=== PATIENT | female | born 1960 | race Caucasian/White ===

== ENCOUNTER 2019-08-24 19:31 | Emergency (ER) | payer MEDICAID, SELFPAY ==
[2019-08-24 19:38] VITALS: BP 126/69; PULSE 87; RESP 18; TEMP 36.4; O2SAT 97
--- NOTE | 2019-08-24 19:49 | W.ED.GENAD ---
Discharge Plan Disposition Patient Disposition: HOME Condition: Stable Discharge Details Chief Complaint: Cellulitis Clinical Impression: Abscess Primary Care Provider: Sidney Montes ED Provider: Kaila Abreu Home Meds and New Rx's Prescriptions: New clindamycin HCl 300 mg capsule 300 mg PO BID 7 Days Qty: 14 RF: 0 No Action loratadine [Claritin] 10 MG tablet 10 mg PO DAILY PRNRF: 0 levothyroxine 300 MCG tablet 300 mg PO DAILY Qty: 5 RF: 0 sertraline 100 MG tablet 100 mg PO DAILY Qty: 5 RF: 0 Discharge Instructions Instructions: Abscess (ED) Additional Instructions: Have packing removed in 3 days. It will continue to drain as long as packing is in place. Return to ED if any worsening redness, red streaks, fever or any concerns or worsening at any time. Take antibiotics as prescribed. Follow up with primary care provider in 3-5 days. Return to ED sooner if any worsening or concerns. Increase oral fluids. Please take Tylenol or Ibuprofen with food every 4-6 hours as needed for pain and swelling. Referrals: Sidney Montes [Primary Care Provider] - Medical Decision Making 59 year old F presents to the emergency department with the chief complaint of Right thigh cellulitis versus abscess., described as moderate, with intensity rated at 8. Quality is described as aching and constant, and is localized to the right and lower extremity (Inner thigh). Patient reports no radiation. Patient started experiencing this day(s) (2) and it has been constant. other things that improve symptom(s), (Warm baths) Movement worsens symptoms . Patient notes fever/chills (Chills), malaise and other (Myalgias). Patient did receive the following treatments prior to arrival, heat therapy 2002: [id number] ultrasound done at the bedside, there is fluid-filled pocket, discussed incision and drainage with patient she verbalizes understanding and agrees to procedure. I&D performed patient anesthetized with 1% lidocaine. Patient tolerated well, incision made moderate amount of purulent serosanguineous drainage, approximately 3 inches of quarter inch iodoform packing placed. WBC count is 13, blood cultures x2 were drawn, sodium is 134 patient was given 1 L normal saline in department and 300 mg clindamycin IV piggyback. Will place on patient on clindamycin p.o. x10 days, given home care instructions and strict return instructions. Instructed to have packing removed in 3 days. Verbalized understanding. HPI General Mode of arrival: ambulatory. Date/Time Provider Initiated Documentation: 08/24/19 19:32. Limitations to Documentation: no limitations. Information obtained by: patient. History of Present Illness 59 year old F presents to the emergency department with the chief complaint of Right thigh cellulitis versus abscess., described as moderate, with intensity rated at 8. Quality is described as aching and constant, and is localized to the right and lower extremity (Inner thigh). Patient reports no radiation. Patient started experiencing this day(s) (2) and it has been constant. other things that improve symptom(s), (Warm baths) Movement worsens symptoms . Patient notes fever/chills (Chills), malaise and other (Myalgias). Patient did receive the following treatments prior to arrival, heat therapy Related Data Home Medications Medication Instructions Recorded Confirmed loratadine [Claritin] 10 mg PO DAILY PRN 03/06/14 08/24/19 levothyroxine 300 mg PO DAILY #5 tablet 03/07/14 08/24/19 sertraline 100 mg PO DAILY #5 tab 03/07/14 08/24/19 clindamycin HCl 300 mg PO BID 7 Days #14 cap 08/24/19 Previous Rx's Medication Instructions Recorded levothyroxine 300 mg PO DAILY #5 tablet 03/07/14 sertraline 100 mg PO DAILY #5 tab 03/07/14 clindamycin HCl 300 mg PO BID 7 Days #14 cap 08/24/19 Allergies Allergy/AdvReac Type Severity Reaction Status Date / Time shellfish derived Allergy Severe anaphylaxis Unverified 08/24/19 19:42 acetaminophen [From Vicodin] Allergy Intermediate body rash/ Unverified 08/24/19 19:42 ciprofloxacin [From Cipro] Allergy Intermediate body Unverified 08/24/19 19:42 rash/nausea ciprofloxacin HCl Allergy Intermediate body Unverified 08/24/19 19:42 [From Cipro] rash/nausea codeine Allergy Intermediate body Unverified 08/24/19 19:42 rash/nausea hydrocodone bitartrate Allergy Intermediate body rash/ Unverified 08/24/19 19:42 [From Vicodin] Penicillins Allergy Intermediate body Unverified 08/24/19 19:42 rash/nausea General Stated Complaint: Cellulitis JAYMIE: 3 Review of Systems Narrative: Constitutional: Negative for weight loss, alert and oriented, well groomed, normal body habitus, appears comfortable. Reports myalgias and chills HEENT: Denies trauma, headaches, blurry vision, nasal discharge, sore throat, trouble swallowing. Chest: Denies chest pain, palpitations, irregular rhythm, hypertension. Respiratory: Denies Shortness of breath, cough, hemoptysis. GI: Denies abdominal pain, nausea, vomiting, diarrhea, constipation. : Denies dysuria, hematuria, flank pain, rectal bleeding. Skin: Has a 10 cm x 10 cm area of erythema and induration noted to her inner thigh. Neuro: Denies dizziness, blurry vision, weakness, syncope, headache or facial numbness. Hematologic: Denies easy bruising, intolerance to heat or cold, hair loss. [facility] Medical History Dilated pore of Amor (Acute) Graves disease (Acute) Surgical History History of appendectomy (Chronic) History of hysterectomy (Chronic) History of knee surgery (Acute) Social History Smoking/Tobacco Use Status: Current-Occasional Alcohol Intake: never Drug use: Never Substance use type: does not use Do you feel safe at home: Yes Do you feel safe in your relationship?: Yes Exam Narrative Exam Narrative: Constitutional: Alert and oriented x3. Appears stated age. Normal body habitus. Head: Normocephalic, no trauma. Eyes: Pupils PERRLA, Red reflex noted, EOM's intact. Eyelids symmetrical without lesions, discharge, or swelling. ENT: Bilateral TM's WNL, External ear normal to inspection, no mastoid TTP, swelling, or erythema, Nasal turbinates WNL, no nasal discharge. Normal dentition, Posterior pharynx WNL, no exudate. Chest: RRR, Normal S1, S2, distal pulses intact. Resp: Lungs clear to auscultation bilaterally, no wheezes, rales, or rhonchi. Musculoskeletal: Normal gait, 5/5 strength to all four extremities. Skin: Capillary refill less than 2 sec. has a 10 cm x 10 cm area of erythema and induration noted to her right inner thigh, warm and tender to touch. Neurologic: Cranial nerves II-XII intact. Alert and oriented x 3. DTR's intact. Hematologic/Lymphatic: No ecchymosis, no lymphadenopathy. Course Vital Signs Vital signs: Vital Signs Temperature 36.4 C L 08/24/19 19:38 Pulse 87 08/24/19 19:38 Respiratory Rate 18 08/24/19 19:38 Blood Pressure 126/69 08/24/19 19:38 Pulse Oximetry 97 08/24/19 19:38 Temperature 36.4 C L 08/24/19 19:38 Temperature Source Skin 08/24/19 19:38 Pulse 87 08/24/19 19:38 Respiratory Rate 18 08/24/19 19:38 Respiratory Effort Non-Labored 08/24/19 19:44 Blood Pressure 126/69 08/24/19 19:38 Pulse Oximetry 97 08/24/19 19:38 Pain Level 08/24/19 19:38 Procedures Abscess I/D Site: Lower Extremity (Right inner thigh) Side (if applicable): Right Sedation/analgesia: None Local Anesthetic: Lidocaine 1% Amount of anesthesia used (mL): 3 Technique: Incised with #11 Blade Amount of fluid expressed (mL): 100 (Serosanguineous with mixed purulent) Irrigation: No Packing used?: Iodoform (Quarter-inch approximately 3 inches) Complications: Bleeding
[2019-08-24 20:14] LABS: Abs Immature Grans 0.03 k/cumm (0.0-0.09); Absolute Basophil Count 0.03 k/cumm (0.0-0.2); Absolute Eosinophil Count 0.17 k/cumm (0.0-0.7); Basophils % 0.2; Eosinophils % 1.2; HCT 38.5 % (36.0-46.0); HGB 12.3 g/dL (12.0-15.5); Immature Grans % 0.2 %; Lymphocytes % 27.3; Mean Corp. HGB Concentration 31.9 g/dL (32.0-36.0); Mean Corpuscular Volume 87.5 fL (80-95); Mean Platelet Volume 10.2 fL (8.0-11.0); Monocytes % 7.6; Neutrophils % 63.5; Platelet Count 321 x1000/uL (130-400); RBC Distribution Width 16.2 % (11.7-14.6); White Blood Cell Count 13.86 k/cumm (4.4-10.8)
[2019-08-24 20:22] LABS: Absolute Lymphocyte Count 3.78 k/cumm (1.2-3.4); Absolute Monocyte Count 1.05 k/cumm (0.11-0.7)
[2019-08-24 20:32] LABS: ALT 43 U/L (14-59); AST 21 U/L (15-37); Albumin 3.6 g/dL (3.4-5.0); Alkaline Phosphatase 102 U/L (46-116); Anion Gap 8.3 mmol/L (3-11); BUN 17 mg/dL (7-18); Bilirubin, Total 0.3 mg/dL (0.2-1.0); CO2 26.7 mmol/L (21.0-32.0); CREATININE 0.99 mg/dL (0.55-1.02); Calcium 9.1 mg/dL (8.5-10.1); Chloride 99 mmol/L (98-107); Estimated GFR 57.61 (mL/min/1.73m2); Glucose 136 mg/dL (74-106); Potassium 3.9 mmol/L (3.5-5.1); Sodium 134 mmol/L (136-145); Total Protein 8.1 g/dL (6.4-8.2)
[2019-08-24] MEDS: Lidocaine 1% Multi-Dose 50 ML VIAL IJ (20:42)
[2019-08-24] MEDS: CLINDAMYCIN 300 MG/50 ML BAG 100 MG IVPB (21:25)
[2019-08-24] MEDS: Normal Saline 1,000 ML 1000 ML IV (21:25)
[2019-08-24] MEDS: Ibuprofen 600 MG TAB PO (21:56)
[2019-08-24 22:20] VITALS: PULSE 76; RESP 16; O2SAT 96
== END 2019-08-24 22:25 | disposition home or self-care (01) ==
PROVIDERS: Emergency Provider Registered Nurse Emergency; PCP Internal Medicine
DX: L02.415 Cutaneous abscess of right lower limb (principal); L73.8 Other specified follicular disorders
CPT/HCPCS: 10061; 36415; 80053; 87040; 87077; 96361; 96365; 99284; 85025; 87070; 87186; 87205; 99283

== ENCOUNTER 2020-03-08 04:22 | Outpatient (CLI) | payer MEDICAID, SELFPAY ==
[2020-03-08 08:29] LABS: Hemoglobin A1C 6.3 % (<5.7)
[2020-03-08 08:54] LABS: FREE T4 1.22 ng/dL (0.76-1.46); TSH 1.86 uIU/mL (0.36-3.74)
[2020-03-08 09:03] LABS: ALT 58 U/L (14-59); AST 42 U/L (15-37); Albumin 3.7 g/dL (3.4-5.0); Alkaline Phosphatase 100 U/L (46-116); Anion Gap 8.1 mmol/L (3-11); BUN 15 mg/dL (7-18); Bilirubin, Total 0.3 mg/dL (0.2-1.0); CO2 26.9 mmol/L (21.0-32.0); CREATININE 0.75 mg/dL (0.55-1.02); Calcium 9.4 mg/dL (8.5-10.1); Chloride 105 mmol/L (98-107); Glucose 104 mg/dL (74-106); Potassium 4.4 mmol/L (3.5-5.1); Sodium 140 mmol/L (136-145); Total Protein 7.8 g/dL (6.4-8.2)
[2020-03-08 09:06] LABS: Vitamin D 25 Total 15.5 ng/ml (30-100)
== END 2020-03-08 04:42 ==
PROVIDERS: Internal Medicine Endocrinology, Diabetes & Metabolism; PCP Internal Medicine; Visit Provider Internal Medicine
DX: E89.0 Postprocedural hypothyroidism (principal); E66.01 Morbid (severe) obesity due to excess calories; Z68.42 Body mass index [BMI] 45.0-49.9, adult
CPT/HCPCS: 36415; 80053; 82306; 83525; 83527; 83036; 84439; 84443

== ENCOUNTER 2020-05-25 11:02 | Outpatient (REF) | payer MEDICAID, SELFPAY ==
[2020-05-27 14:15] LABS: Helicobacter pylori Ag, Feces Positive (Negative)
== END 2020-05-25 11:03 | disposition home or self-care (01) ==
LOC: LBN 11:02
PROVIDERS: PCP Internal Medicine; Visit Provider Internal Medicine
DX: E66.01 Morbid (severe) obesity due to excess calories (principal); Z68.42 Body mass index [BMI] 45.0-49.9, adult
CPT/HCPCS: 87338

== ENCOUNTER 2020-07-13 18:02 | Emergency (ER) | payer MEDICAID, SELFPAY ==
[2020-07-13 18:10] VITALS: BP 135/68; PULSE 76; RESP 18; TEMP 35.9; O2SAT 100
--- NOTE | 2020-07-13 18:15 | DI.RAD_ITS ---
EXAM: XR KNEE LT 3V AP,LAT,ANGIE CLINICAL HISTORY: pain. TECHNIQUE: 2D digital imaging was performed. COMPARISON: No exams were available for comparison FINDINGS: There is no evidence of acute fracture but there does appear to be a joint effusion. In addition, th ere are significant degenerative changes in the medial compartment with joint space narrowing and mar ginal osteophytes. Also bony excrescence pointing into the joint space off the anterior aspect of th e tibial plateau. Also small intra-articular loose body, in the inter condylar notch region, this me asuring 2 millimeters. No osseous lesions. IMPRESSION: Degenerative changes. Joint effusion. Intra-articular loose body. DATA REPOSITORY: RADIATION DOSE DELIVERED:
--- NOTE | 2020-07-13 18:17 | W.ED.GENAD ---
Discharge Plan Disposition Patient Disposition: HOME Condition: Stable Discharge Details Clinical Impression: Knee pain, left Primary Care Provider: Sidney Montes ED Provider: Jm Curtis Home Meds and New Rx's Prescriptions: New gabapentin 100 mg capsule 100 mg PO TID PRNQty: 30 RF: 0 Continued loratadine [Claritin] 10 MG tablet 10 mg PO DAILY PRNRF: 0 sertraline 100 MG tablet 100 mg PO DAILY Qty: 5 RF: 0 No Action levothyroxine 300 MCG tablet 225 mcg PO DAILY RF: 0 Discharge Instructions Instructions: Knee Pain (ED) Additional Instructions: you can take 1000mg tylenol and 600mg ibuprofen every 6 hours for pain as needed follow up with your primary care provider within 1-2 weeks if you feel more ill, have fevers or spreading redness of the knee return to the emergency department Medical Decision Making 60 yo female comes in with left knee pain. She states she left for [place] 4 weeks ago and came back this past Sunday. She states while there she did walk and ride bikes quite a bit, denies any falls or trauma, no redness or fevers. On exam has mild swelling of the left knee without erythema or warmth. Can full move it with intact distal sensation, does have pain over the medial joint line. Suspect sprain vs overuse vs possible meniscus injury, doubt fracture but will xray to evaluate for arthritis. No findings to suggest septic joint Shortly after discussing plan with patient she questioned purpose of the xray and just wanted something forpain. I advised xray will likely be normal but the reasons I wanted to perform it. She states she has been taking ibuprofen and what else she could take for pain. When I asked if she has taken tylenol she stared at me for a few seconds then said Tylenol? Tylenol ain't going to do anything. I did advise there are other medicines that could potentially help such as gabapentin or lidocaine but did not feel meds such as opiates are indicated for this and did not feel comfortable prescribing opiates. The patient then began to get very upset stating I haven't taken any F'ing opiates my whole damn life! She was very angry and I tried multiple times to try and discuss calmly with the patient reasons opiates are restricted but she did not agree with this. She is requesting d/c with no xray but does want the gabapentin. I advised she needs to follow up with her pcp within 1-2 weeks and advised she can always return if she changes her mind patient is now agreeable to having xray at this time. pt did not want to wait for xray result and again has capacity to make her own decisions. She was advised again she can return at any time especially if symptoms worsen and advised to f/u with pcp xray showed arthiritis with small effusion and no findings to warrant emergent therapy at this time. Differential Diagnosis Differential Diagnosis: arthritis, sprain, strain, meniscus injury Imaging Data Radiologic Study: Attestation: I personally reviewed and interpreted this imaging study as follows: Imaging: X-Ray Radiologist's impression: IMPRESSION: Tricompartmental osteoarthritis with moderate medial compartment joint space narrowing, small joint effusion, and possible tiny intra-articular body. HPI General Date/Time Provider Initiated Documentation: 07/13/20 18:17. Limitations to Documentation: no limitations. Information obtained by: patient. History of Present Illness 60 year old F presents to the emergency department with the chief complaint of left knee pain, Quality is described as aching, and is localized to the lower extremity. Patient reports no radiation. Patient started experiencing this week(s) (2) and it has been constant. Rest improves symptom(s), Movement worsens symptoms . Patient did receive the following treatments prior to arrival, NSAID Related Data Home Medications Medication Instructions Recorded Confirmed loratadine [Claritin] 10 mg PO DAILY PRN 03/06/14 07/13/20 sertraline 100 mg PO DAILY #5 tab 03/07/14 07/13/20 gabapentin 100 mg PO TID PRN #30 cap 07/13/20 levothyroxine 225 mcg PO DAILY 07/13/20 07/13/20 Previous Rx's Medication Instructions Recorded sertraline 100 mg PO DAILY #5 tab 03/07/14 gabapentin 100 mg PO TID PRN #30 cap 07/13/20 Allergies Allergy/AdvReac Type Severity Reaction Status Date / Time shellfish derived Allergy Severe anaphylaxis Unverified 07/13/20 18:18 acetaminophen [From Vicodin] Allergy Intermediate body rash/ Unverified 07/13/20 18:18 ciprofloxacin [From Cipro] Allergy Intermediate body Unverified 07/13/20 18:18 rash/nausea ciprofloxacin HCl Allergy Intermediate body Unverified 07/13/20 18:18 [From Cipro] rash/nausea codeine Allergy Intermediate body Unverified 07/13/20 18:18 rash/nausea hydrocodone bitartrate Allergy Intermediate body rash/ Unverified 07/13/20 18:18 [From Vicodin] Penicillins Allergy Intermediate body Unverified 07/13/20 18:18 rash/nausea General JAYMIE: 3 Review of Systems All systems reviewed & are unremarkable except as noted in HPI and below Constitutional Constitutional: Denies chills and Denies fever(s) Cardiovascular Cardiovascular: Denies chest pain and Denies dyspnea Respiratory Respiratory: Denies cough and Denies dyspnea Gastrointestinal Gastrointestinal: Denies abdominal pain, Denies nausea and Denies vomiting [facility] Medical History (Updated 07/13/20 @ 18:18 by Jm Curtis MD) Dilated pore of Amor Graves disease Surgical History History of appendectomy History of hysterectomy History of knee surgery Social History Smoking/Tobacco Use Status: Former Tobacco Use Smoking risk assessment performed?: Yes Alcohol Intake: never Drug use: Never Substance use type: does not use Do you feel safe at home: Yes Do you feel safe in your relationship?: Yes Exam Const General: no acute distress Orientation: alert HENMT Head: normal to inspection Ears: external ears normal General nose exam: external nose normal Mouth: moist mucous membranes Eyes General: appearance normal, both eyes and all related structures Neck Neck: normal visual inspection Resp Effort & Inspection: normal respiratory effort and able to speak in complete sentences Cardio Rate: regular rate Skin General skin exam: no rashes or lesions noted Neuro General: patient alert and patient oriented x3 Extrem General: capillary refill normal Psych Mental Status: mental status grossly normal
--- NOTE | 2020-07-13 19:10 | NUR.NOTE ---
Nursing Note:Patient asking if she can leave. Discussed with Dr. Curtis. Patient can be discharged, still waiting for Radiology report. Will call patient if needed when report comes back. Discussed this with patient. Patient okay with this POC, states she just wants to get to the pharmacy to get her medication to see if it's going to help.
--- NOTE | 2020-07-13 19:33 | DI.VRAD_ITS ---
PROCEDURE INFORMATION: Exam: XR Left Knee Exam date and time: 07/13/2020 6:27 PM Age: 60 years old Clinical indication: Other: Pain; Additional info: Non trauma left knee pain TECHNIQUE: Imaging protocol: XR Left knee. Views: 3 views. COMPARISON: No relevant prior studies available. FINDINGS: Bones/joints: Moderate medial compartment joint space narrowing. Small joint effusion. Tricompartmental degenerative spurring. Tiny calcification, noted in the intercondylar notch, may be an intra-articular body. Small inferior pole patellar enthesophyte. Soft tissues: Normal. IMPRESSION: Tricompartmental osteoarthritis with moderate medial compartment joint space narrowing, small joint effusion, and possible tiny intra-articular body. Dictated and Authenticated by: Navin Wolfe MD. Ordering:KAITLYNN Oneal MD
--- NOTE | 2020-07-13 19:40 | NUR.NOTE ---
Nursing Note:Reviewed Radiology report with Dr. Curtis. Per Dr. Curtis not necessary to call patient with report. Patient to follow up with PCP.
== END 2020-07-13 19:15 | disposition home or self-care (01) ==
LOC: ER 18:26
PROVIDERS: Emergency Provider Emergency Medicine; PCP Internal Medicine
DX: M17.12 Unilateral primary osteoarthritis, left knee (principal); M25.462 Effusion, left knee
CPT/HCPCS: 73562; 99283

== ENCOUNTER 2021-01-06 02:03 | Outpatient (CLI) | payer MEDICAID, SELFPAY ==
[2021-01-06 13:13] LABS: Abs Immature Grans 0.01 10^3/uL (0.0-0.06); Absolute Basophil Count 0.04 10^3/uL (0.0-0.2); Absolute Eosinophil Count 0.16 10^3/uL (0.0-0.7); Absolute Lymphocyte Count 3.73 10^3/uL (1.2-3.4); Absolute Monocyte Count 0.47 10^3/uL (0.1-0.8); Absolute Neutrophil Count 3.65 10^3/uL (1.2-6.7); Basophils % 0.5; HCT 40.7 % (36.0-46.0); HGB 13.3 g/dL (11.2-15.7); Immature Grans % 0.1; Lymphocytes % 46.3; MCH 30.3 pg (27.0-33.0); MCHC 32.7 % (32.0-36.0); MCV 92.7 fL (80-95); MPV 9.8 fL (8.0-11.0); Monocytes % 5.8; Neutrophils % 45.3; Nucleated RBC 0 %; Platelet Count 284 10^3/uL (130-400); RBC 4.39 10^6/uL (3.93-5.22); RDW 14.2 % (11.7-14.6); RDW-SD 48.3 fL; WBC 8.06 10^3/uL (4.4-10.8)
[2021-01-06 14:24] LABS: Iron 54 ug/dL (50-170); Total Iron Binding Capacity 298 ug/dL (250-450); Transferrin Sat 18 % (15-50)
[2021-01-06 14:44] LABS: ALT 22 U/L (14-59); AST 15 U/L (15-37); Albumin 3.8 g/dL (3.4-5.0); Alkaline Phosphatase 71 U/L (46-116); Anion Gap 10.6 mmol/L (3-11); BUN 10 mg/dL (7-18); Bilirubin, Total 0.4 mg/dL (0.2-1.0); CO2 26.4 mmol/L (21.0-32.0); CREATININE 0.8 mg/dL (0.55-1.02); Calcium 9.3 mg/dL (8.5-10.1); Chloride 105 mmol/L (98-107); Ferritin 15 ng/mL (8-252); Folate 13.2 ng/mL (8.6-20.0); Glucose 97 mg/dL (74-106); Potassium 3.8 mmol/L (3.5-5.1); Sodium 142 mmol/L (136-145); Total Protein 7.4 g/dL (6.4-8.2); Vitamin B12 247 pg/mL (193-986)
[2021-01-06 14:45] LABS: Vitamin D 25 Total 31.7 ng/mL (30-100)
[2021-01-07 09:59] LABS: Parathyroid Hormone,Intact 71 pg/mL (19-88)
[2021-01-08 09:57] LABS: Thiamine (Vitamin B1), WB 102 nmol/L (70-180)
== END 2021-01-06 02:04 | disposition home or self-care (01) ==
LOC: LBO 02:03
PROVIDERS: PCP Internal Medicine; Visit Provider Internal Medicine
DX: Z98.84 Bariatric surgery status (principal); Z68.41 Body mass index [BMI] 40.0-44.9, adult; Z00.00 Encounter for general adult medical examination without abnormal findings
CPT/HCPCS: 36415; 80053; 82306; 82607; 82728; 82746; 83540; 83550; 83970; 84425; 85025

== ENCOUNTER 2021-07-06 02:39 | Outpatient (CLI) | payer MEDICAID, SELFPAY ==
[2021-07-06 12:38] LABS: Abs Immature Grans 0.03 10^3/uL (0.0-0.06); Absolute Basophil Count 0.03 10^3/uL (0.0-0.2); Absolute Eosinophil Count 0.17 10^3/uL (0.0-0.7); Absolute Lymphocyte Count 3.51 10^3/uL (1.2-3.4); Absolute Monocyte Count 0.51 10^3/uL (0.1-0.8); Basophils % 0.3; Eosinophils % 1.9; HCT 40.8 % (36.0-46.0); HGB 13.2 g/dL (11.2-15.7); Immature Grans % 0.3; Lymphocytes % 40.1; MCH 30.6 pg (27.0-33.0); MCHC 32.4 % (32.0-36.0); MCV 94.4 fL (80-95); Monocytes % 5.8; Neutrophils % 51.6; Nucleated RBC 0 %; Platelet Count 307 10^3/uL (130-400); RBC 4.32 10^6/uL (3.93-5.22); RDW-SD 45.1 fL; WBC 8.75 10^3/uL (4.4-10.8)
[2021-07-06 13:23] LABS: ALT 16 U/L (14-59); AST 13 U/L (15-37); Alkaline Phosphatase 89 U/L (46-116); Anion Gap 9.7 mmol/L (3-11); BUN 17 mg/dL (7-18); Bilirubin, Total 0.4 mg/dL (0.2-1.0); CO2 27.3 mmol/L (21.0-32.0); CREATININE 0.7 mg/dL (0.55-1.02); Calcium 9.6 mg/dL (8.5-10.1); Chloride 105 mmol/L (98-107); Glucose 85 mg/dL (74-106); Potassium 4.1 mmol/L (3.5-5.1); Sodium 142 mmol/L (136-145); Total Protein 7.5 g/dL (6.4-8.2)
== END 2021-07-06 02:40 | disposition home or self-care (01) ==
LOC: LBO 02:39
PROVIDERS: PCP Internal Medicine; Visit Provider Internal Medicine Rheumatology
DX: Z00.00 Encounter for general adult medical examination without abnormal findings (principal)
CPT/HCPCS: 36415; 80053; 85025

== ENCOUNTER 2022-03-01 02:51 | Outpatient (CLI) | payer MEDICAID, SELFPAY ==
[2022-03-01 12:23] LABS: HCT 40.5 % (36.0-46.0); HGB 13.4 g/dL (11.2-15.7); MCH 30.7 pg (27.0-33.0); MCHC 33.1 % (32.0-36.0); MCV 93 fL (80-95); MPV 9.3 fL (8.0-11.0); Platelet Count 361 10^3/uL (130-400); RBC 4.37 10^6/uL (3.93-5.22); RDW-SD 48.1 fL; WBC 9.81 10^3/uL (4.4-10.8)
[2022-03-01 13:15] LABS: ALT 19 U/L (14-59); AST 13 U/L (15-37); Albumin 3.9 g/dL (3.4-5.0); Alkaline Phosphatase 73 U/L (46-116); Anion Gap 7.3 mmol/L (3-11); BUN 14 mg/dL (7-18); Bilirubin, Total 0.3 mg/dL (0.2-1.0); CO2 27.7 mmol/L (21.0-32.0); CREATININE 0.8 mg/dL (0.55-1.02); Calcium 9.1 mg/dL (8.5-10.1); Chloride 104 mmol/L (98-107); Ferritin 24 ng/mL (8-252); Folate 12.8 ng/mL (8.6-20.0); Glucose 91 mg/dL (74-106); Potassium 3.6 mmol/L (3.5-5.1); Sodium 139 mmol/L (136-145); Total Protein 7.9 g/dL (6.4-8.2); Vitamin B12 146 pg/mL (193-986)
[2022-03-01 13:23] LABS: Iron 71 ug/dL (50-170)
[2022-03-01 23:47] LABS: Parathyroid Hormone,Intact 51 pg/mL (19-88)
[2022-03-02 04:56] LABS: Vitamin D 25 Total 23.5 ng/mL (30-100)
[2022-03-04 09:58] LABS: Thiamine (Vitamin B1), WB 124 nmol/L (70-180)
== END 2022-03-01 02:52 | disposition home or self-care (01) ==
LOC: LBO 02:51
PROVIDERS: PCP Internal Medicine; Visit Provider Nurse Practitioner Family
DX: E83.10 Disorder of iron metabolism, unspecified (principal); Z98.84 Bariatric surgery status; E55.9 Vitamin D deficiency, unspecified; E53.8 Deficiency of other specified B group vitamins
CPT/HCPCS: 36415; 80053; 82306; 85027; 82607; 82728; 82746; 83540; 83970; 84425

== ENCOUNTER 2023-08-06 13:07 | Outpatient (CLI) | payer MEDICAID, SELFPAY ==
[2023-08-06 13:16] LABS: HCT 38.9 % (36.0-46.0); HGB 12.8 g/dL (11.2-15.7); MCH 31.4 pg (27.0-33.0); MCHC 32.9 % (32.0-36.0); MCV 96 fL (80-95); Platelet Count 297 10^3/uL (130-400); RBC 4.07 10^6/uL (3.93-5.22); RDW-SD 63.3 fL; WBC 8.04 10^3/uL (4.4-10.8)
[2023-08-06 14:00] LABS: Iron 84 ug/dL (50-170); Total Iron Binding Capacity 317 ug/dL (250-450); Transferrin Sat 26 % (15-50)
[2023-08-06 14:13] LABS: Ferritin 95 ng/mL (8-252); Folate 12.2 ng/mL (8.6-20.0); Vitamin B12 275 pg/mL (193-986)
== END 2023-08-06 13:08 | disposition home or self-care (01) ==
LOC: LBO 13:07
PROVIDERS: PCP Internal Medicine; Visit Provider Nurse Practitioner Family
DX: D50.9 Iron deficiency anemia, unspecified (principal)
CPT/HCPCS: 36415; 85027; 82607; 82728; 82746; 83540; 83550

== ENCOUNTER 2023-08-23 01:19 | Outpatient (CLI) | payer MEDICAID, SELFPAY ==
[2023-08-23 14:33] LABS: Vitamin D 25 Total 18.1 ng/mL (30-100)
[2023-08-24 08:48] LABS: Parathyroid Hormone,Intact 55 pg/mL (19-88)
== END 2023-08-23 01:20 | disposition home or self-care (01) ==
LOC: LBO 01:19
PROVIDERS: PCP Internal Medicine; Visit Provider Nurse Practitioner Family
DX: E55.9 Vitamin D deficiency, unspecified (principal)
CPT/HCPCS: 36415; 82306; 83970

== ENCOUNTER 2023-11-27 17:15 | Emergency (ER) | payer MEDICAID, SELFPAY ==
[2023-11-27 17:17] VITALS: BP 105/75; PULSE 82; RESP 12; TEMP 37.4; O2SAT 98
[2023-11-27 17:26] VITALS: BP 105/75; PULSE 82; RESP 12; TEMP 37.4; O2SAT 98
[2023-11-27 17:27] VITALS: RESP 18
--- NOTE | 2023-11-27 17:33 | ED.GENADUL_ITS ---
Discharge Plan Disposition Patient Disposition: Home Condition: Stable Discharge Details Clinical Impression: Abscess of axilla, left Primary Care Provider: Sidney Montes ED Provider: Kaila Abreu Home Meds and New Rx's Prescriptions: No Action loratadine [Claritin] 10 MG tablet 10 mg PO DAILY PRN levothyroxine 300 MCG tablet 250 mcg PO DAILY ferrous gluconate 324 mg (38 mg iron) tablet Patient Comments: TAKE ONE TABLET BY MOUTH EVERY DAY Discharge Instructions Instructions: Hidradenitis suppurativa, Abscess Incision and Drainage ED Additional Instructions: Please ask your doctor about hidradenitis suppurativa. Follow-up with general surgery of recurrent abscesses. Apply warm compresses. The numbing medicine will wear off in approximately 2 to 4 hours. Please take Tylenol or Ibuprofen with food every 4-6 hours as needed for pain and swelling. Follow up with primary care provider in 3-5 days. Return to ED sooner if any worsening or concerns. Referrals: Sidney Montes [Primary Care Provider] - 5 days Becky Stone DO [OSTEOPATHIC DOCTOR] - 2 weeks (Left axilla abscess) HPI General Mode of arrival: ambulatory . Date/Time Provider Initiated Documentation: 11/27/23 17:25 . Limitations to Documentation: no limitations . Information obtained by: patient, RN notes reviewed and old records reviewed . HPI Narrative: 63-year-old female presents to the ER with a chief complaint of axillary abscess which began approximately 2 days ago. She reports it is tender with movement and is unable to sleep due to the pain. She denies any fever or chills. She does have a history of multiple cyst. Other past medical history includes Graves' disease. She has tried warm compresses with little to no relief. Related Data Home Medications ?Medication ?Instructions ?Recorded ?Confirmed loratadine 10 mg tablet (Claritin) 10 mg PO DAILY PRN 03/06/14 11/27/23 levothyroxine 300 mcg tablet 250 mcg PO DAILY 07/13/20 11/27/23 ferrous gluconate 324 mg (38 mg mg 11/27/23 iron) tablet Allergies Allergy/AdvReac Type Severity Reaction Status Date / Time shellfish derived Allergy Severe anaphylaxis Unverified 11/27/23 17:21 acetaminophen (From Vicodin) Allergy Intermediate body rash/ Unverified 11/27/23 17:21 ciprofloxacin (From Cipro) Allergy Intermediate body Unverified 11/27/23 17:21 rash/nausea ciprofloxacin HCl (From Allergy Intermediate body Unverified 11/27/23 17:21 Cipro) rash/nausea codeine Allergy Intermediate body Unverified 11/27/23 17:21 rash/nausea hydrocodone bitartrate (From Allergy Intermediate body rash/ Unverified 11/27/23 17:21 Vicodin) Penicillins Allergy Intermediate body Unverified 11/27/23 17:21 rash/nausea General Stated Complaint: GenMedical JAYMIE: 3 Review of Systems Integumentary/Breasts Skin/Breast: Reports as per HPI and Reports furuncle Exam Chest Chest/axillae images: 2 1. Approximately 3 x 3 cm abscess palpated no surrounding induration or erythema noted. No drainage noted. Course Vital Signs Vital signs: Vital Signs Temperature 37.4 C 11/27/23 17:17 Pulse 82 11/27/23 17:17 Respiratory Rate 12 11/27/23 17:17 Blood Pressure 105/75 11/27/23 17:17 Pulse Oximetry 98 11/27/23 17:17 Temperature 37.4 C 11/27/23 17:26 Temperature Source Skin 11/27/23 17:26 Pulse 82 11/27/23 17:26 Respiratory Rate 18 11/27/23 17:27 Respiratory Effort Normal, Non-Labored 11/27/23 17:27 Respiratory Depth Normal 11/27/23 17:27 Respiratory Pattern Normal 11/27/23 17:27 Blood Pressure 105/75 11/27/23 17:26 Blood Pressure Position Supine 11/27/23 17:26 Pulse Oximetry 98 11/27/23 17:26 Oxygen Delivery Method Room Air 11/27/23 17:26 Oxygen Flow Rate 0 11/27/23 17:26 Pain Level 10 11/27/23 17:26 Procedures Abscess I/D Site: Upper Extremity (left axillae) Side (if applicable): Left Sedation/analgesia: None Local Anesthetic: Lidocaine 1%, With Epi and Other Anesthetic (Topical let) Amount of anesthesia used (mL): 5 Technique: Incised with #11 Blade Amount of fluid expressed (mL): 5 Irrigation: No Packing used?: None Complications: Other (None-lucio well) Medical Decision Making 63-year-old female presents to the ER with a chief complaint of axillary abscess which began approximately 2 days ago. She reports it is tender with movement and is unable to sleep due to the pain. She denies any fever or chills. She does have a history of multiple cyst. Other past medical history includes Graves' disease. She has tried warm compresses with little to no relief. Topical let applied. Will plan on incision and drainage. Please see the procedure note, I&D performed with small amount of purulent drainage mixed with blood. Patient tolerated well. Anesthesia achieved. Dry dressing applied and discussed home care and follow-up instructions she verbalized understanding. This text was generated using Jeeranation system, please disregard any oddities of phrase or misspellings. Quality:SDOH Health Related Social Needs: 2 No Data to Display PFSH All Active Problems (Updated 11/27/23 @ 18:31 by Kaila Abreu NP) Abscess of axilla, left (Acute) Knee pain, left (Acute) H/O surgical procedure (Chronic) a. s/p appendectomy b. s/p hysterectomy Anxiety (Chronic) Hypothyroidism (Chronic) Hyperlipidemia (Chronic) Word finding difficulty (Acute 03/06/14) Hand weakness (Acute 03/06/14) Medical History (Updated 11/27/23 @ 18:31 by Kaila Abreu NP) Dilated pore of Amor Graves disease Surgical History History of knee surgery History of appendectomy History of hysterectomy Social History Smoking/Tobacco Use Status: Former Tobacco Use Smoking risk assessment performed?: Yes Alcohol Intake: never Drug use: Never Substance use type: does not use Housing: house Do you feel safe at home: Yes Do you feel safe in your relationship?: Yes
[2023-11-27] MEDS: Lidocaine/Epinephri/Tetracaine Topical Gel 3 ML TP (17:42)
[2023-11-27] MEDS: Acetaminophen 500 MG TAB 1000 MG PO (17:46)
[2023-11-27] MEDS: Lidocaine 1% Multi-Dose W/EPI 1/100,000 50 ML VIAL (18:12)
[2023-11-27 18:37] VITALS: BP 100/78; PULSE 71; RESP 16; O2SAT 95
== END 2023-11-27 18:31 | disposition home or self-care (01) ==
PROVIDERS: Emergency Provider Registered Nurse Emergency; PCP Internal Medicine
DX: L02.412 Cutaneous abscess of left axilla (principal)
CPT/HCPCS: 10060; J2004

== ENCOUNTER 2023-11-30 04:00 | Inpatient (IN) | payer MEDICAID, SELFPAY ==
[2023-11-30] VITALS (38 sets, daily range): BP systolic 85–125; BP diastolic 47–68; PULSE 55–75; RESP 7–21; TEMP 36.1–37.5; O2SAT 90–100
--- NOTE | 2023-11-30 04:00 | RT.EKG_ITS ---
APPROVED REPORT Exam: Resting ECG Reason for Exam: left shoulder pain Patient Location: E HR:73 bpm ECG Measurements Heart Rate 73 AXIS DE 147 P 73 QRSd 97 QRS -51 QT 408 T 43 QTc 449 Conclusion Sinus rhythm...normal P axis, V-rate 60- 99 Left anterior fascicular block...axis(240,-40), init forces inf Physician: no stemi
--- NOTE | 2023-11-30 04:17 | ED.GENADUL_ITS ---
Discharge Plan Disposition Patient Disposition: Admit to [facility] Condition: Improving Discharge Details Chief Complaint: Chest Pain Clinical Impression: Abscess of axilla, left, Cellulitis Primary Care Provider: Sidney Montes ED Provider: Rambo Lockhart Home Meds and New Rx's Prescriptions: No Action loratadine [Claritin] 10 MG tablet 10 mg PO DAILY PRN levothyroxine 300 MCG tablet 250 mcg PO DAILY ferrous gluconate 324 mg (38 mg iron) tablet Patient Comments: TAKE ONE TABLET BY MOUTH EVERY DAY HPI General Date/Time Provider Initiated Documentation: 11/30/23 04:02 . HPI Narrative: 63-year-old female with a past medical history of hypothyroidism, previous axillary cyst/abscesses, presents today for evaluation of worsening left axillary pain. Patient states that she developed the most recent small cyst about 4 to 5 days ago. She came in on 11/27/2023 as she was having notable pain and swelling in that area. The area was incised and drained with purulence being removed. Patient was discharged home. Area has continued draining, however over the last 24 to 48 hours is gotten bigger, she has had chills, she has had increased pain in the axillary region and has transition towards her chest. She denies any pleuritic chest pain or shortness of breath. She is not currently on any antibiotics. No other complaints at this time. Related Data Home Medications ?Medication ?Instructions ?Recorded ?Confirmed loratadine 10 mg tablet (Claritin) 10 mg PO DAILY PRN 03/06/14 11/30/23 levothyroxine 300 mcg tablet 250 mcg PO DAILY 07/13/20 11/30/23 ferrous gluconate 324 mg (38 mg mg 11/27/23 iron) tablet Allergies Allergy/AdvReac Type Severity Reaction Status Date / Time clindamycin Allergy Severe Anaphylaxis Verified 11/30/23 04:13 shellfish derived Allergy Severe anaphylaxis Unverified 11/30/23 04:13 acetaminophen (From Vicodin) Allergy Intermediate body rash/ Unverified 11/30/23 04:13 ciprofloxacin (From Cipro) Allergy Intermediate body Unverified 11/30/23 04:13 rash/nausea ciprofloxacin HCl (From Allergy Intermediate body Unverified 11/30/23 04:13 Cipro) rash/nausea codeine Allergy Intermediate body Unverified 11/30/23 04:13 rash/nausea hydrocodone bitartrate (From Allergy Intermediate body rash/ Unverified 11/30/23 04:13 Vicodin) Penicillins Allergy Intermediate body Unverified 11/30/23 04:13 rash/nausea General Stated Complaint: Chest Pain JAYMIE: 2 Review of Systems All systems reviewed & are unremarkable except as noted in HPI and below Exam Narrative Exam Narrative: 1.Const: Well-nourished, Well-developed, appearing stated age 2.Eyes: PERRL, no conjunctival injection, and symmetrical lids. 3.ENT: Atraumatic external nose and ears. Moist MM. Neck: Symmetric, trachea midline, No thyromegaly. 4.CVS: +S1/S2, No murmurs or gallops. Peripheral pulses 2+ and equal in all extremities. Brisk capillary refill in all extremities. 5.RESP: Unlabored respiratory effort. Clear to auscultation bilaterally. No wheezes rales or rhonchi 6.GI: Soft, Nontender/Nondistended, No hepatosplenomegaly. No guarding or rebound. 7.MSK: Left axillary region demonstrates an area of erythema, as well as a large actively draining abscess that palpably feels indurated in the axillary region, with a diameter of roughly 4 cm, with slight irregular borders. No venous streaking patterns. Drainage is purulent. 8.Skin: Warm, Dry. No rashes or lesions. Please see musculoskeletal 9.Neuro: maltster II-XII grossly intact. Sensation grossly intact, no focal neurologic deficits. 10.Psych: (AAO) x3. Appropriate mood and affect Course Vital Signs Vital signs: Vital Signs Pulse 74 11/30/23 04:04 Respiratory Rate 16 11/30/23 04:04 Blood Pressure 125/66 11/30/23 04:04 Pulse Oximetry 97 11/30/23 04:04 Pulse 74 11/30/23 04:04 Respiratory Rate 16 11/30/23 04:04 Blood Pressure 125/66 11/30/23 04:04 Blood Pressure Position Supine 11/30/23 04:04 Pulse Oximetry 97 11/30/23 04:04 Oxygen Delivery Method Room Air 11/30/23 04:04 Oxygen Flow Rate 0 11/30/23 04:04 Pain Level 10 11/30/23 04:04 Comment movement makes it worse 11/30/23 04:04 Procedures Abscess I/D Site: Upper Extremity Side (if applicable): Left Local Anesthetic: Lidocaine 2% and With Epi Amount of anesthesia used (mL): 15 Technique: Incised with #11 Blade Amount of fluid expressed (mL): 20 Irrigation: Yes Packing used?: Plain Medical Decision Making 63-year-old female with a past medical history of hypothyroidism, previous axillary cyst/abscesses, presents today for evaluation of worsening left axillary pain. Patient states that she developed the most recent small cyst about 4 to 5 days ago. She came in on 11/27/2023 as she was having notable pain and swelling in that area. The area was incised and drained with purulence being removed. Patient was discharged home. Area has continued draining, however over the last 24 to 48 hours is gotten bigger, she has had chills, she has had increased pain in the axillary region and has transition towards her chest. She denies any pleuritic chest pain or shortness of breath. She is not currently on any antibiotics. No other complaints at this time. Exam demonstrates well-appearing female, notably stable vital signs, no fever. She has a large abscess in her left axillary region which appears firm and indurated. There is active purulent drainage from the previous incision and drainage site. Concern for some mild cellulitis and return to the abscess. Will give doxycycline, check blood work, repeat the incision and drainage in place packing, monitor closely and reassess. 6:26 AM Laboratory workup shows mild white count of 14, mild left shift, lactate normal. Electrolytes normal, troponin normal, EKG benign, procalcitonin less than 0.1. The patient's left axillary region was anesthetized with lidocaine, it was cleansed with chlorhexidine, the original site that was I indeed was reopened, only about 1 to 2 mL of purulent drainage came from there. Secondary site was reopened slightly superior to this, 11 blade was used, the area was then opened and all compartments were accessed that could be accessed. A total of 10 to 12 mL of purulent fluid was removed. This area was then washed out. A secondary site just lateral to that was also noted, it could not be reached with the hemostats, and a sinus tract could not be made. 22-gauge needle was used and 2 mL of purulent discharge were removed from there. Through that site an 11 blade was made and enhance the size of the drainage tract, but no additional purulent drainage was noted. The areas were packed. Patient tolerated this well. Chest pain notably improved after removal of purulent drainage and discharge. We are still pending imaging to confirm that there is no other atypical tract or pathology throughout the chest. 8:[address] scan shows evidence of haziness and fat stranding and edema in the subcutaneous tissues near the border of the pectoralis major muscle. I did call radiology and discussed the case with them, they do not see evidence of abscess though, or myositis. The area that was incised and drained is present, with the asim being present as well. There is no other evidence of subcutaneous air near the pectoralis muscle to suggest necrotizing fasciitis. That being said with a notable prominence of the inflammatory changes, I do feel that the p atient would benefit from additional IV antibiotics. I did contact surgery and discussed the case with Dr. Oviedo, she will come and evaluate the patient for surgical consult. I did contact the hospitalist Dr. Ellis, and he accepts the patient for admission for continued IV antibiotics and monitoring. I have extensively reviewed the treatment plan with the patient. I have addressed all patient concerns at this time. I have also discussed the plan with the admitting physician and they agree with the current assessment and plan and have agreed to assume responsibility for the patient. All parties demonstrate verbal understanding and agreement with our assessment and plan at this time. The documentation in this chart was dictated using [employer] dictation software. Please excuse any dictation errors. FINDINGS: Lungs: Linear atelectasis and/or fibrosis is seen involving the lower lobes bilaterally. No consolidation. Pleural spaces: Unremarkable. No pneumothorax. No pleural effusion. Heart: Unremarkable. No cardiomegaly. No pericardial effusion. Coronary arteries: Coronary artery calcifications are noted. Lymph nodes: Unremarkable. No enlarged lymph nodes. Vasculature: Arteriosclerotic changes are noted. Stomach: The patient is status post gastric surgery. Intestine: There is a small hiatus hernia noted. Bones/joints: Spondylosis is demonstrated. Soft tissues: There is abnormal increased haziness seen in the subcutaneous fat in the anterior aspect of the left shoulder and in the left axilla. Tiny gas bubbles are seen in the subcutaneous fat anterolateral to the humeral head and there is a cutaneous defect in the skin in the upper left axillary region. IMPRESSION: 1. Cutaneous defect in the left axillary region suggesting ulceration. 2. Tiny gas bubbles in the subcutaneous fat anterolateral to the humeral head would suggest abscess. 3. Haziness in the subcutaneous fat of the anterior aspect of the left shoulder and in the left axilla consistent with edematous or inflammatory change. 4. Linear atelectasis and/or fibrosis, as described above. 5. Coronary artery calcifications. 6. Status post gastric surgery. 7. Small hiatus hernia. Thank you for allowing us to participate in the care of your patient. Dictated and Authenticated by: Harry Mohamud MD 11/30/2023 7:33 AM Eastern Time ([place] & [place] Quality:SDOH Health Related Social Needs: No Data to Display PFSH All Active Problems (Updated 11/30/23 @ 08:03 by Rambo Lockhart DO) Cellulitis (Acute) Abscess of axilla, left (Acute) Knee pain, left (Acute) H/O surgical procedure (Chronic) a. s/p appendectomy b. s/p hysterectomy Anxiety (Chronic) Hypothyroidism (Chronic) Hyperlipidemia (Chronic) Word finding difficulty (Acute 03/06/14) Hand weakness (Acute 03/06/14) Medical History (Updated 11/30/23 @ 08:03 by Rambo Lockhart DO) Dilated pore of Amor Graves disease Surgical History History of knee surgery History of appendectomy History of hysterectomy Social History Smoking/Tobacco Use Status: Former Tobacco Use Smoking risk assessment performed?: Yes Alcohol Intake: never Drug use: Never Substance use type: does not use Housing: house Do you feel safe at home: Yes Do you feel safe in your relationship?: Yes
[2023-11-30 04:20] LABS: Lactate 0.9 mmol/L (0.6-1.4)
[2023-11-30 04:22] LABS: Abs Immature Grans 0.05 10^3/uL (0.0-0.06); Absolute Basophil Count 0.03 10^3/uL (0.0-0.2); Absolute Eosinophil Count 0.18 10^3/uL (0.0-0.7); Absolute Monocyte Count 0.95 10^3/uL (0.1-0.8); Basophils % 0.2 %; Eosinophils % 1.3 %; HCT 39.7 % (36.0-46.0); HGB 13.1 g/dL (11.2-15.7); Immature Grans % 0.4 %; MCH 31.4 pg (27.0-33.0); MCV 95 fL (80-95); MPV 9.4 fL (8.0-11.0); Monocytes % 6.7 %; Neutrophils % 74.4 %; Platelet Count 266 10^3/uL (130-400); RBC 4.17 10^6/uL (3.93-5.22); RDW 13.8 % (11.7-14.6); RDW-SD 47.6 fL; WBC 14.21 10^3/uL (4.4-10.8)
[2023-11-30 04:24] LABS: Absolute Lymphocyte Count 2.42 10^3/uL (1.2-3.4); Absolute Neutrophil Count 10.57 10^3/uL (1.2-6.7)
[2023-11-30] MEDS: DOXYCYCLINE 100 MG in Normal Saline 100 ML IVPB ×2 (04:33→16:11)
[2023-11-30] MEDS: Lidocaine/Epinephri/Tetracaine Topical Gel 3 ML TP (04:34)
[2023-11-30] MEDS: Ketorolac 15 MG/ML VIAL IVP (04:34)
[2023-11-30 04:40] LABS: ALT 21 U/L (14-59); AST 15 U/L (15-37); Albumin 3.8 g/dL (3.4-5.0); Alkaline Phosphatase 76 U/L (46-116); BUN 13 mg/dL (7-18); Bilirubin, Total 0.57 mg/dL (0.2-1.0); CREATININE 0.9 mg/dL (0.55-1.02); Calcium 9.1 mg/dL (8.5-10.1); Chloride 100 mmol/L (98-107); Estimated GFR 72.28 (mL/min/1.73m2); Glucose 113 mg/dL (74-106); Potassium 3.8 mmol/L (3.5-5.1); Sodium 137 mmol/L (136-145); Troponin I < 50 ng/L (< or =60)
[2023-11-30 04:51] LABS: Procalcitonin < 0.1 ng/mL
--- NOTE | 2023-11-30 06:00 | DI.CT_ITS ---
Exam(s) CT CHEST WO EXAM: CT CHEST WO CLINICAL HISTORY: left chest pain, Laxillary abscess, eval absce. TECHNIQUE: Imaging protocol: Axial computed tomography images were obtained and coronal and sagittal reformatted images were created and reviewed. COMPARISON: No exams were available for comparison FINDINGS: Tracheobronchial tree: Patent where visualized. No bronchiectasis is present. Pulmonary parenchyma: No consolidation or dominant measurable mass. No architectural distortion. Ther e is atelectasis in the lung bases. No suspicious pulmonary nodules. Mediastinum and Farzana: No dominant adenopathy or fluid collection. The esophagus is unremarkable.There are postsurgical changes seen at the gastroesophageal junction. There does appear to be a small hia santiago hernia present. Thyroid gland: Unremarkable. Pleura: No effusion or pneumothorax. Heart: The heart is not dilated. Coronary artery calcifications are present. No pericardial effusion . Aorta: Thoracic aorta non-dilated. Atherosclerotic calcifications are present. Upper abdomen: There are bilateral small adrenal hypodensities likely reflecting adenomas. Lymph nodes: Mildly enlarged lymph nodes are seen in the left axilla which are likely reactive. Soft tissues: There is infiltration in the soft tissues in the left lateral chest wall and left axill a. Small foci of subcutaneous air is seen. No focal drainable fluid collection is seen. There is m ild skin thickening in the region consistent with cellulitis. There does appear to be some thickenin g of the lateral aspect of the pectoralis minor and major muscles. An associated myositis should be considered. Bones:Within normal limits for the patient's age. IMPRESSION: 1. In the left axilla and left chest wall, there is infiltration of the subcutaneous fat. There is t hickening of the scan suggesting a cellulitis. No drainable fluid collection is seen at this time. There is subcutaneous gas seen in the soft tissues in this region. Tiny microabscesses should be con sidered. Please correlate with any intervention. There is thickening of the lateral aspects of both the left pectoralis minor and major muscles suggesting a inflammatory/infectious process. 2. Reactive adenopathy in the left axilla. RADIATION DOSE DELIVERED: Total DLP Total DLP DATA REPOSITORY: All CT scans at this facility are submitted to the National Radiology Data Registry (NRDR) Dose Index Registry (DIR) with the [employer] (ACR). RADIATION OPTIMIZATION: All CT scans at this facility use at least one of these dose optimization te chniques: automated exposure control; mA and/or kV adjustment per patient size (includes targeted exa ms where dose is matched to clinical indication); or iterative reconstruction.
[2023-11-30] MEDS: MORPHine 4 MG/ML SYR IVP (06:12)
--- NOTE | 2023-11-30 07:34 | DI.VRAD_ITS ---
Addendum created by Harry Mohamud MD on 11/30/2023 7:43:11 AM EDT: Findings were discussed with RAVEN VARNER at 11/30/2023 7:40 AM EDT. There is a poorly defined area of increased density along the lateral aspect of the left pectoralis muscle measuring approximately 2.6 x 1.6 which could represent hematoma or abscess. There is no gas collection within it. Initial report created on 11/30/2023 7:33:42 AM EDT: PROCEDURE INFORMATION: Exam: CT Chest Without Contrast; Diagnostic Exam date and time: 11/30/2023 6:26 AM Age: 63 years old Clinical indication: Other: Left chest pain, laxillary abscess, eval absce; Left-sided TECHNIQUE: Imaging protocol: Diagnostic computed tomography of the chest without contrast. 3D rendering (Not supervised by radiologist): MIP and/or 3D reconstructed images were created by the technologist. COMPARISON: No relevant prior studies available. FINDINGS: Lungs: Linear atelectasis and/or fibrosis is seen involving the lower lobes bilaterally. No consolidation. Pleural spaces: Unremarkable. No pneumothorax. No pleural effusion. Heart: Unremarkable. No cardiomegaly. No pericardial effusion. Coronary arteries: Coronary artery calcifications are noted. Lymph nodes: Unremarkable. No enlarged lymph nodes. Vasculature: Arteriosclerotic changes are noted. Stomach: The patient is status post gastric surgery. Intestine: There is a small hiatus hernia noted. Bones/joints: Spondylosis is demonstrated. Soft tissues: There is abnormal increased haziness seen in the subcutaneous fat in the anterior aspect of the left shoulder and in the left axilla. Tiny gas bubbles are seen in the subcutaneous fat anterolateral to the humeral head and there is a cutaneous defect in the skin in the upper left axillary region. IMPRESSION: 1. Cutaneous defect in the left axillary region suggesting ulceration. 2. Tiny gas bubbles in the subcutaneous fat anterolateral to the humeral head would suggest abscess. 3. Haziness in the subcutaneous fat of the anterior aspect of the left shoulder and in the left axilla consistent with edematous or inflammatory change. 4. Linear atelectasis and/or fibrosis, as described above. 5. Coronary artery calcifications. 6. Status post gastric surgery. 7. Small hiatus hernia. Dictated and Authenticated by: Harry Mohamud MD. Ordering:FARHAN Ricks MD
--- NOTE | 2023-11-30 08:54 | W.PC.ACHO ---
Registration Status: Primary Language: Preferred Language: ED Information & Data Chief Complaint Chest Pain 11/30/23 04:22 Triage Note cyst lanced 2 days ago L 11/30/23 04:04 axillary not put on abx now having L shoulder pain earlier today now pain is migrating to mid chest and it has hot to touch and having chills Medical / Surgical History (Last Reviewed 11/30/23 @ 04:19 by Rambo Lockhart DO) Dilated pore of Amor Graves disease (Last Reviewed 11/30/23 @ 04:19 by Rambo Lockhart DO) History of knee surgery History of appendectomy History of hysterectomy Most Recent Vital Signs Pulse 66 11/30/23 05:31 Pulse 74 11/30/23 05:31 Respiratory Rate 15 11/30/23 05:31 Respiratory Effort Normal 11/30/23 04:15 Respiratory Depth Normal 11/30/23 04:15 Respiratory Pattern Normal 11/30/23 04:15 Blood Pressure 105/60 11/30/23 05:31 Blood Pressure Mean 75 11/30/23 05:31 Blood Pressure Position Supine 11/30/23 04:04 Pulse Oximetry 95 11/30/23 05:31 Oxygen Delivery Method Room Air 11/30/23 04:04 Oxygen Flow Rate 0 11/30/23 04:04 Pain Level 10 11/30/23 06:12 Comment movement makes it worse 11/30/23 04:04 Allergies clindamycin Allergy (Severe, Verified 11/30/23 04:13) Anaphylaxis shellfish derived Allergy (Severe, Unverified 11/30/23 04:13) anaphylaxis acetaminophen (From Vicodin) Allergy (Intermediate, Unverified 11/30/23 04:13) body rash/ ciprofloxacin (From Cipro) Allergy (Intermediate, Unverified 11/30/23 04:13) body rash/nausea ciprofloxacin HCl (From Cipro) Allergy (Intermediate, Unverified 11/30/23 04:13) body rash/nausea codeine Allergy (Intermediate, Unverified 11/30/23 04:13) body rash/nausea hydrocodone bitartrate (From Vicodin) Allergy (Intermediate, Unverified 11/30/23 04:13) body rash/ Penicillins Allergy (Intermediate, Unverified 11/30/23 04:13) body rash/nausea IV IV Catheter Type [Right Peripheral IV Antecubital] IV Catheter Gauge [Right 18 Antecubital] Diagnostics 11/30/23 Range/Units 04:15 WBC 14.21 H (4.4-10.8) 10^3/uL RBC 4.17 (3.93-5.22) 10^6/uL Hgb 13.1 (11.2-15.7) g/dL Hct 39.7 (36.0-46.0) % MCV 95 (80-95) fL MCH 31.4 (27.0-33.0) pg MCHC 33.0 (32.0-36.0) % RDW 13.8 (11.7-14.6) % Plt Count 266 (130-400) 10^3/uL MPV 9.4 (8.0-11.0) fL Immature Gran % 0.4 % Neutrophils % 74.4 % Lymphocytes % 17.0 % Monocytes % 6.7 % Eosinophils % 1.3 % Basophils % 0.2 % Nucleated RBC % 0.0 (0.0-0.3) % Absolute Neutrophils 10.57 H (1.2-6.7) 10^3/uL Absolute Lymphocytes 2.42 (1.2-3.4) 10^3/uL Absolute Monocytes 0.95 H (0.1-0.8) 10^3/uL Absolute Eosinophils 0.18 (0.0-0.7) 10^3/uL Absolute Basophils 0.03 (0.0-0.2) 10^3/uL VBG Lactate 0.9 (0.6-1.4) mmol/L Sodium 137 (136-145) mmol/L Potassium 3.8 (3.5-5.1) mmol/L Chloride 100 (98-107) mmol/L Carbon Dioxide 27.0 (21.0-32.0) mmol/L Anion Gap 10.0 (3-11) mmol/L BUN 13 (7-18) mg/dL Creatinine 0.9 (0.55-1.02) mg/dL Est GFR (CKD-EPI 2020) 72.28 (mL/min/1.73m2) Glucose 113 H (74-106) mg/dL Calcium 9.1 (8.5-10.1) mg/dL Total Bilirubin 0.57 (0.2-1.0) mg/dL AST 15 (15-37) U/L ALT 21 (14-59) U/L Alkaline Phosphatase 76 (46-116) U/L Troponin I < 50 (< or =60) ng/L Total Protein 8.0 (6.4-8.2) g/dL Albumin 3.8 (3.4-5.0) g/dL Procalcitonin < 0.1 ng/mL 11/30/23 06:05 Wound Culture - Pending Axillary Gram Stain - Pending Intake and Output - 24 Hour Total 11/30/23 04:00 thru 11/30/23 05:54 Intake Total 100 Balance 100 Weight 79.379 kg Intake: IV 100 Falls Risk Assessment History of Falls No History 11/30/23 04:15 Contributing Factors No Factors 11/30/23 04:15 Ambulatory Aids Independent 11/30/23 04:15 Tubes/Lines None 11/30/23 04:15 Gait Evaluation No gait disturbance 11/30/23 04:15 Cognition No cognitive impairment 11/30/23 04:15 Fall Total Score 0 11/30/23 04:15 Level of Risk Standard/Low Risk 11/30/23 04:15 v v v v v v v v v Sending and/or Receiving Nurses: Please use comment section below to note any information pertinent to the patient hand-off not included above. Information / Comments:Pt discharged from [facility] two days ago after have cyst in left under arm drained. Patient states that cyst has been getting bigger with pain. Has recieved doxycycline, ketorolac, and morphine since admission to ED. Fully alert and oriented, with clear lungs and regular heart rate. Last BP was 92/51, but patient states that is her baseline BP. ED nurse is getting new vitals to report during transfer to Med/Surg. Report received from: Parvin Haji
--- NOTE | 2023-11-30 09:35 | HPE_ITS ---
Date of service: 11/30/23 Time of Service: 09:35 Assessment and Plan Assessment and plan (1) Abscess of axilla, left: Status: Acute Assessment and plan: Excised in ED, washed out and packed Continue antibiotics:Doxycycline IV Q12 Surgery consult: Please read note -Wound dressing orders to follow -Monitoring for necrotizing wound but unlikely (2) Cellulitis: Status: Acute Assessment and plan: As above Pain medicine as needed (3) Anxiety: Status: Chronic Assessment and plan: C/o of insomnia Melatonin HS scheduled PRN low dose lorazepam at HS (4) Hypothyroidism: Status: Chronic Assessment and plan: Continue home med regimen Discussed with Dr. Ellis History of Present Illness History of Present Illness Chief Complaint: Left axillary pain Narrative: This 64-year-old female patient with a past medical history of hypothyroidism, previous axillary cyst/abscesses growing over 5 days with excision and drainage completed on 11/27/2023 in the ED with on discharge, presented to the ED at [facility] on 11/29/2023 for evaluation of worsening left axillary pain with fever at 100 degrees and chills. On arrival to the ED it was noticed that the area has continued draining, but grown in size over the last 24 to 48 hours is gotten bigger, and reported pain radiating to her mid-clavicular line. No report of pleuritic chest pain or shortness of breath.Afebrile in the ED. Workup in the ED revealed WBC at 14.21 with negative procalcitonin and lactate; chemistry was unremarkable.The ED provider proceeded to reincised and drained the original site for a total of 10-12 ml of purulent drainage under local anesthesia with lidocaine after cleansing with chlorhexidine.The area was washed out. A second area along the primary site was drained for 2ml of pus with a 22- gauge needle without additional purulence collected on further drainage tract opening.Areas were packed. Improvement of pain s/p drainage. CT showed infiltration of the subcutaneous fat, thickening suggesting a cellulitis with thickening of the lateral aspects of both the left pectoralis minor and major muscles suggesting a inflammatory/infectious process. Consideration to be given to reactive adenopathy as well as micro abscesses in the region.The hospitalist was consulted and the patient admitted to the medical surgical floor for evaluation and management of left axilary cellulitis. Doxycycline IV was initiated in the ED. When seen in room, the patient reported resolved headache, improving left axillary pain radiating to mid- clavicular line. The patient denies dizziness,chest pain, nausea, vomiting, diarrhea, abdominal pain or dysuria. Review of Systems All systems reviewed & are unremarkable except as noted in HPI and below PFSH All Active Problems (Updated 11/30/23 @ 16:15 by Marlyn Oviedo DO) Myositis (Acute) Cellulitis (Acute) Abscess of axilla, left (Acute) Knee pain, left (Acute) H/O surgical procedure (Chronic) a. s/p appendectomy b. s/p hysterectomy Anxiety (Chronic) Hypothyroidism (Chronic) Hyperlipidemia (Chronic) Word finding difficulty (Acute 03/06/14) Hand weakness (Acute 03/06/14) Medical History (Updated 11/30/23 @ 16:15 by Marlyn Oviedo DO) Dilated pore of Amor Graves disease Surgical History History of knee surgery History of appendectomy History of hysterectomy Family History (Updated 11/30/23 @ 16:45 by Jennifer Alberto APRN) Mother Diabetes Heart disease Renal disease Father Progressive aphasia Social History Smoking/Tobacco Use Status: Former Tobacco Use Smoking risk assessment performed?: Yes Alcohol Intake: never Drug use: Never Substance use type: does not use Housing: house Do you feel safe at home: Yes Do you feel safe in your relationship?: Yes Meds Allergies and Home Medications Allergies Allergy/AdvReac Type Severity Reaction Status Date / Time clindamycin Allergy Severe Anaphylaxis Verified 11/30/23 04:13 shellfish derived Allergy Severe anaphylaxis Unverified 11/30/23 04:13 acetaminophen (From Vicodin) Allergy Intermediate body rash/ Unverified 11/30/23 04:13 ciprofloxacin (From Cipro) Allergy Intermediate body Unverified 11/30/23 04:13 rash/nausea ciprofloxacin HCl (From Allergy Intermediate body Unverified 11/30/23 04:13 Cipro) rash/nausea codeine Allergy Intermediate body Unverified 11/30/23 04:13 rash/nausea hydrocodone bitartrate (From Allergy Intermediate body rash/ Unverified 11/30/23 04:13 Vicodin) Penicillins Allergy Intermediate body Unverified 11/30/23 04:13 rash/nausea Home Medications ?Medication ?Instructions ?Recorded ?Confirmed ?Type loratadine 10 mg tablet (Claritin) 10 mg PO DAILY PRN 03/06/14 11/30/23 History levothyroxine 300 mcg tablet 250 mcg PO DAILY 07/13/20 11/30/23 History ferrous gluconate 324 mg (38 mg mg 11/27/23 History iron) tablet Results Labs 11/30/23 04:15 11/30/23 04:15 Labs: Laboratory Results - last 24 hr 11/30/23 04:15 WBC 14.21 H RBC 4.17 Hgb 13.1 Hct 39.7 MCV 95 MCH 31.4 MCHC 33.0 RDW 13.8 Plt Count 266 MPV 9.4 Immature Gran % 0.4 Neutrophils % 74.4 Lymphocytes % 17.0 Monocytes % 6.7 Eosinophils % 1.3 Basophils % 0.2 Nucleated RBC % 0.0 Absolute Neutrophils 10.57 H Absolute Lymphocytes 2.42 Absolute Monocytes 0.95 H Absolute Eosinophils 0.18 Absolute Basophils 0.03 VBG Lactate 0.9 Sodium 137 Potassium 3.8 Chloride 100 Carbon Dioxide 27.0 Anion Gap 10.0 BUN 13 Creatinine 0.9 Est GFR (CKD-EPI 2020) 72.28 Glucose 113 H Calcium 9.1 Total Bilirubin 0.57 AST 15 ALT 21 Alkaline Phosphatase 76 Troponin I < 50 Total Protein 8.0 Albumin 3.8 Procalcitonin < 0.1 Last Vital Signs Temp 37.5 C 11/30/23 09:09 Pulse 60 11/30/23 09:09 Resp 18 11/30/23 09:09 BP 91/56 L 11/30/23 09:09 Pulse Ox 97 11/30/23 09:09 Time Spent Time spent with Patient: >75 minutes Time was spent: preparing to see the patient(eg.review tests), obtaining and/or reviewing separately otained hiistory, ordering medications,tests, procedures, referring, communicating with other health manager respiratory care, indepentently interpreting results, counseling the patient and care coordination
--- NOTE | 2023-11-30 11:48 | CHAPLAIN ---
Linda was resting in bed when I visited. She was tearful when I introduced myself. She said she's had a rough 24 hours and needed someone to talk to. A few days ago she was in the ED and had a cyst under her arm lanced. She returned yesterday when it became painful and swollen, then she was admitted. 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 Linda is originally from [place]. She said she was stressed by the would around the cyst worsening and asked me to pray with her. We did that. Linda said she had been praying when she was in the ED. Her mom, she said was very hinduism and told Linda why worry when you can pray. I let Linda know that infectious diseases physician is available 06/11..
--- NOTE | 2023-11-30 14:17 | W.SURGCON ---
Date of service: 11/30/23 Time of Service: 11:45 Assessment and Plan Assessment and plan (1) Abscess of axilla, left: Status: Acute Assessment and plan: Patient is hemodynamically stable. She is status post I&D of 3 cysts in the left axilla. We will change dressings tomorrow and perform local wound care. With orders to follow in the chart. She has tenderness to the left pectoralis muscle. Most likely related to local inflammation of the left axilla. Will monitor for signs of necrotizing myositis however this is doubtful. Agree with current therapy of IV fluids and IV antibiotics and pain control. Will continue to follow. (2) Myositis: Status: Acute Qualifiers: Myositis type: other type History of Present Illness History of Present Illness Chief Complaint: left axillary abscess Narrative: This patient is a pleasant 63-year-old female with a history of left axillary hidradenitis. She presented to emergency department on 813 for left axillary abscess. At that time was I&D need. The patient returned to the emergency department this morning with complaints of increased axillary swelling and pain to the left chest. In the emergency department the patient had I&D of [address] scan of the chest demonstrate findings suspicious for left chest myositis. The patient was subsequently admitted to the hospital for IV antibiotics and pain control. General surgery was asked to see the patient. Review of Systems All systems reviewed & are unremarkable except as noted in HPI and below PFSH All Active Problems (Updated 11/30/23 @ 16:15 by Marlyn Oviedo DO) Myositis (Acute) Cellulitis (Acute) Abscess of axilla, left (Acute) Knee pain, left (Acute) H/O surgical procedure (Chronic) a. s/p appendectomy b. s/p hysterectomy Anxiety (Chronic) Hypothyroidism (Chronic) Hyperlipidemia (Chronic) Word finding difficulty (Acute 03/06/14) Hand weakness (Acute 03/06/14) Medical History (Updated 11/30/23 @ 16:15 by Marlyn Oviedo DO) Dilated pore of Amor Graves disease Surgical History History of knee surgery History of appendectomy History of hysterectomy Social History Smoking/Tobacco Use Status: Former Tobacco Use Smoking risk assessment performed?: Yes Alcohol Intake: never Drug use: Never Substance use type: does not use Housing: house Do you feel safe at home: Yes Do you feel safe in your relationship?: Yes Exam Const General: cooperative, comfortable and no acute distress Nutritional Appearance: average body habitus Orientation: alert, awake and oriented x3 Chest Chest: normal inspection of the chest Other: There is no erythema to the skin of the left chest, however there was tenderness to palpation of the left pectoralis muscle. There was no crepitus appreciated. Left axilla-there were 2 stab incisions within the left axilla with quarter inch packing. At least 2 large cyst could be palpated. There is tenderness to palpation. There was signs of skin changes consistent with left hidradenitis. There was no purulent drainage Resp Effort & Inspection: normal respiratory effort and able to speak in complete sentences Auscultation: clear to auscultation bilaterally Cardio Rate: regular rate Rhythm: regular rhythm Heart Sounds: S1 normal and S2 normal GI Palpation: soft Results Last Vital Signs Temp 99.5 F 11/30/23 09:09 Pulse 60 11/30/23 09:09 Resp 18 11/30/23 09:09 BP 91/56 L 11/30/23 09:09 Pulse Ox 97 11/30/23 09:09 Labs 11/30/23 04:15 11/30/23 04:15 Labs: Laboratory Results - last 24 hr 11/30/23 04:15 WBC 14.21 H RBC 4.17 Hgb 13.1 Hct 39.7 MCV 95 MCH 31.4 MCHC 33.0 RDW 13.8 Plt Count 266 MPV 9.4 Immature Gran % 0.4 Neutrophils % 74.4 Lymphocytes % 17.0 Monocytes % 6.7 Eosinophils % 1.3 Basophils % 0.2 Nucleated RBC % 0.0 Absolute Neutrophils 10.57 H Absolute Lymphocytes 2.42 Absolute Monocytes 0.95 H Absolute Eosinophils 0.18 Absolute Basophils 0.03 VBG Lactate 0.9 Sodium 137 Potassium 3.8 Chloride 100 Carbon Dioxide 27.0 Anion Gap 10.0 BUN 13 Creatinine 0.9 Est GFR (CKD-EPI 2020) 72.28 Glucose 113 H Calcium 9.1 Total Bilirubin 0.57 AST 15 ALT 21 Alkaline Phosphatase 76 Troponin I < 50 Total Protein 8.0 Albumin 3.8 Procalcitonin < 0.1
[2023-11-30] MEDS: Acetaminophen 325 MG TAB PO (15:16)
[2023-11-30] MEDS: Normal Saline Flush 10 ML SYR IVP ×2 (16:12→19:59)
[2023-11-30] MEDS: Ibuprofen 600 MG TAB PO (19:58)
[2023-11-30] MEDS: Melatonin 3 MG TAB PO (19:58)
[2023-11-30] MEDS: LORazepam 0.5 MG TAB PO (19:58)
[2023-12-01] MEDS: DOXYCYCLINE 100 MG in Normal Saline 100 ML IVPB (05:03)
[2023-12-01] MEDS: Ibuprofen 600 MG TAB PO (05:04)
[2023-12-01 06:54] LABS: HCT 34.8 % (36.0-46.0); HGB 11.6 g/dL (11.2-15.7); MCH 31.1 pg (27.0-33.0); MCHC 33.3 % (32.0-36.0); MCV 93 fL (80-95); MPV 9.6 fL (8.0-11.0); Platelet Count 267 10^3/uL (130-400); RBC 3.73 10^6/uL (3.93-5.22); RDW 13.7 % (11.7-14.6); RDW-SD 46.5 fL; WBC 11.17 10^3/uL (4.4-10.8)
[2023-12-01 07:12] LABS: Anion Gap 10.7 mmol/L (3-11); BUN 16 mg/dL (7-18); CO2 25.3 mmol/L (21.0-32.0); CREATININE 0.7 mg/dL (0.55-1.02); Calcium 8.7 mg/dL (8.5-10.1); Chloride 101 mmol/L (98-107); Estimated GFR 97.72 (mL/min/1.73m2); Glucose 101 mg/dL (74-106); Magnesium 1.6 mg/dL (1.8-2.4); Potassium 3.5 mmol/L (3.5-5.1); Sodium 137 mmol/L (136-145)
[2023-12-01 08:47] VITALS: BP 102/60; PULSE 61; RESP 17; TEMP 36.2; O2SAT 99
[2023-12-01] MEDS: Normal Saline Flush 10 ML SYR IVP ×2 (09:31→21:07)
--- NOTE | 2023-12-01 11:36 | PDOC.CMIN ---
Date of service: 12/01/23 Time of Service: 11:41 Care Management Initial Assmt Initial Assessment Reason for Hospitalization: Left arm cellulitis Functional Status/Living Situation Patient Presentation: Linda was lying in bed when CM met with her. She stated that she recently returned from the OR, where she had an I&D of the abscesses in her left arm. She shared about her experience in the ED three days prior to this visit, when she had the abscess drained at the bedside, which appeared to go well. She was concerned about this because she was discharged without a prescription for an antibiotic, and just days later the abscess required drainage again, and she reported pain and chills. She feels strongly that she should have had antibiotics upon discharge from her first ED visit. She expressed gratitude for the care she is receiving now, and feels that her experience will be a teaching opportunity; CM offered to support her in contacting patient experience, and she stated that she plans to reach out on Sunday. Her daughter, Monique, arrived to visit during the conversation. CM discussed the potential for HH RN upon discharge for wound packing/dressing. Her antibiotic course is not defined at this time. CM will continue to follow. Town of Residence: [facility] Significant Other/Family: Out of area Natural Supports: daughter, Monique, lives in [place] Employment Status: Unemployed (nurse) Instrumental Activities of Daily Living (ADLs): Independent Medications Medication Management: No Issues/Barriers identified Advance Directives Advance Directives: Do you have an Advance Directive: Y 08/24/19 20:39 AD On File at [facility]: N 03/06/14 19:40 Date Asked 11/27/23 11/27/23 17:18 AD Date Reviewed COLST On File at [facility] COLST Date Scanned Code Status Resuscitation Status Full Code Insurance Coverage/Financial Issues Insurance: [facility] Care Team Visit Care Team Role Provider Type Sidney Montes Primary Care Provider NON-[facility] STAFF PHYSICIAN Rambo Lockhart DO Emergency Provider [facility] STAFF PHYSICIAN Alexis Ellis MD Admit Provider [facility] STAFF PHYSICIAN Attending Provider Discharge Potential Discharge Needs: PCP F/U Appt Anticipated Barriers to Discharge: None Identified Patient/Family Education Needs: Review discharge instructions, discuss Ask Me Three Transportation: Private vehicle Plan: Anticipate Linda will return home once medically cleared. She may require HH RN for wound care post discharge. She will transport via private vehicle, and will follow up with her PCP and discharge plan of care. CM will continue to follow. PFSH All Active Problems (Updated 12/01/23 @ 13:28 by Jennifer Alberto APRN) Discharge planning issues (Acute) Myositis (Acute) Cellulitis (Acute) Abscess of axilla, left (Acute) Knee pain, left (Acute) H/O surgical procedure (Chronic) a. s/p appendectomy b. s/p hysterectomy Anxiety (Chronic) Hypothyroidism (Chronic) Hyperlipidemia (Chronic) Word finding difficulty (Acute 03/06/14) Hand weakness (Acute 03/06/14) Medical History (Updated 12/01/23 @ 13:28 by Jennifer Alberto APRN) Dilated pore of Amor Graves disease Surgical History History of knee surgery History of appendectomy History of hysterectomy Family History (Updated 11/30/23 @ 16:45 by Jennifer Alberto APRN) Mother Diabetes Heart disease Renal disease Father Progressive aphasia Social History Smoking/Tobacco Use Status: Former Tobacco Use Smoking risk assessment performed?: Yes Alcohol Intake: never Drug use: Never Substance use type: does not use Housing: house Do you feel safe at home: Yes Do you feel safe in your relationship?: Yes SDOH(Care Management) Screening Will the Patient Participate in the Screening?: Declined to provide Do you worry about having a steady place to live?: no In the past 12 months, have you had to go without electric, gas, oil or water in your home?: no Have you or anyone in your house had to go without enough food to eat?: no Has lack of transportation kept you from medical appointments or from doing things needed for daily living?: no Has anyone in your support network made you feel unsafe for any reason?: no Anticipated HH Services Anticipated HH Services at Discharge [facility] Needed, RN (wound care/dressing changes) Anticipated Date of Discharge: 12/03/23. Following Provider: Sidney Montes.
--- NOTE | 2023-12-01 11:57 | W.PM.PROGNOT ---
Date of Service Date of service: 12/01/23 Time of Service: 11:57 Assessment and Plan Assessment and plan (1) Abscess of axilla, left: Status: Acute Assessment and plan: full I&D of left axillary abscess in OR today failed bedside treatment of absceses Subjective Subjective Patient reports: feels better Exam Skin Other: left axilla stab incision with heavy purulent drainage secondary abscess pocket also full and tender with purulent drainage Objective Last Vital Signs Temp 97.2 F L 12/01/23 08:47 Pulse 61 12/01/23 08:47 Resp 17 12/01/23 08:47 BP 102/60 12/01/23 08:47 Pulse Ox 99 12/01/23 08:47 Laboratory Results - last 24 hr 12/01/23 06:35 WBC 11.17 H RBC 3.73 L Hgb 11.6 Hct 34.8 L MCV 93 MCH 31.1 MCHC 33.3 RDW 13.7 Plt Count 267 MPV 9.6 Sodium 137 Potassium 3.5 Chloride 101 Carbon Dioxide 25.3 Anion Gap 10.7 BUN 16 Creatinine 0.7 Est GFR (CKD-EPI 2020) 97.72 Glucose 101 Calcium 8.7 Magnesium 1.6 L Time Spent with Patient Time Spent with Patient: 25-34 minutes Time was spent: preparing to see the patient(eg.review tests), obtaining and/or reviewing separately otained hiistory, ordering medications,tests, procedures, referring, communicating with other health foster care therapist, counseling the patient and care coordination
--- NOTE | 2023-12-01 12:48 | W.PM.PROGNOT ---
Date of Service Date of service: 12/01/23 Time of Service: 12:48 Assessment and Plan Assessment and plan (1) Abscess of axilla, left: Status: Acute Assessment and plan: Excised in ED, washed out and packed Initially on Doxycycline IV Q12 but abscess are reforming , MRSA positive in wound, blood cultures ordered , will start vancomycin Surgery consult: Please read note -Failed treatment at bedside- abscess reforming at one of the excision sites -OR today at 4 PM (2) Cellulitis: Status: Acute Assessment and plan: As above Pain medicine as needed (3) Anxiety: Status: Chronic Assessment and plan: C/o of insomnia improving Continue melatonin HS scheduled PRN low dose lorazepam at HS (4) Hypothyroidism: Status: Chronic Assessment and plan: Continue home levothyroxine Discussed with Dr. Ellis (5) Discharge planning issues: Status: Acute Assessment and plan: Discharge when medically clear anticipate HH, oral Zyvox Discussed with Dr. Ellis Subjective Subjective Patient reports: feels better, pain is less, tolerating liquids well, tolerating a regular diet, voiding w/o difficulty and afebrile; denies diarrhea, nausea, vomiting, shortness of breath or fever Exam Narrative Exam Narrative: Constitutional The patient is ambulatory in room w/o acute distress HENMT: Facial structures with normal appearance Eyes: Well aligned, intact ROM Neck: Normal ROM, no meningeal signs Neuro:alert and oriented to self, person, place time and situation. No neurological focal deficit Chest:Chest is symmetrical and normal appearance, drainage to left axillary, no dressing in place Resp:Clear lung bilaterally Cardio: regular rhythm, S1, S2, no murmur,positive pulses to all 4 ext. GI: Abdomen is not distended, soft and non tender, bowel sounds are present Integumentary: Left axillary w/o redness, no dressing in place, previous incision site is visible, purulent drainage observed Extremities: strength 5/5 to bilateral lower and upper extremities Psych: RASS 0, congruent mood and normal affect. Objective Last Vital Signs Temp 36.2 C L 12/01/23 08:47 Pulse 61 12/01/23 08:47 Resp 17 12/01/23 08:47 BP 102/60 12/01/23 08:47 Pulse Ox 99 12/01/23 08:47 Laboratory Results - last 24 hr 08/17/24 06:35 WBC 11.17 H RBC 3.73 L Hgb 11.6 Hct 34.8 L MCV 93 MCH 31.1 MCHC 33.3 RDW 13.7 Plt Count 267 MPV 9.6 Sodium 137 Potassium 3.5 Chloride 101 Carbon Dioxide 25.3 Anion Gap 10.7 BUN 16 Creatinine 0.7 Est GFR (CKD-EPI 2020) 97.72 Glucose 101 Calcium 8.7 Magnesium 1.6 L Time Spent with Patient Time Spent with Patient: >50 minutes Time was spent: preparing to see the patient(eg.review tests), obtaining and/or reviewing separately otained hiistory, ordering medications,tests, procedures, referring, communicating with other health career development counselor, indepentently interpreting results, counseling the patient and care coordination
[2023-12-01 14:30] VITALS: BP 116/70; PULSE 64; RESP 20; TEMP 36.6; O2SAT 96
--- NOTE | 2023-12-01 15:18 | ANES.PREOP_ITS ---
General Info Date of Service Date Performed: 12/01/23 Height: 5 ft 3 in Weight: 80.286 kg Body Mass Index (BMI): 31.3 Surgical Procedure: Operation Date: 12/01/23 15:15 Proposed Procedure Side Surgeon p Kareem Oviedo, DO Meds Allergies and Home Medications Allergies Allergy/AdvReac Type Severity Reaction Status Date / Time clindamycin Allergy Severe Anaphylaxis Verified 11/30/23 04:13 shellfish derived Allergy Severe anaphylaxis Unverified 11/30/23 04:13 acetaminophen (From Vicodin) Allergy Intermediate body rash/ Unverified 11/30/23 04:13 ciprofloxacin (From Cipro) Allergy Intermediate body Unverified 11/30/23 04:13 rash/nausea ciprofloxacin HCl (From Allergy Intermediate body Unverified 11/30/23 04:13 Cipro) rash/nausea codeine Allergy Intermediate body Unverified 11/30/23 04:13 rash/nausea hydrocodone bitartrate (From Allergy Intermediate body rash/ Unverified 11/30/23 04:13 Vicodin) Penicillins Allergy Intermediate body Unverified 11/30/23 04:13 rash/nausea Home Medication ?Medication ?Instructions ?Recorded loratadine 10 mg tablet (Claritin) 10 mg PO DAILY PRN 03/06/14 levothyroxine 300 mcg tablet 250 mcg PO DAILY 07/13/20 ferrous gluconate 324 mg (38 mg mg 11/27/23 iron) tablet Current Visit Medications: Current Medications Generic Name Dose Route Start Last Admin Trade Name Freq PRN Reason Stop Dose Admin Docusate Sodium 100 mg 11/30/23 10:43 Docusate Sodium 100 Mg Cap PO TID PRN PRN Vancomycin/PEG/NADA/Lysine/Water 750 mg in 150 mls @ 150 mls/hr 12/01/23 14:00 12/01/23 14:39 Vancocin Injection IV 150 mls/hr Q8H JACK Administration IV Miscellaneous Supplies 1 each 11/30/23 10:43 Iv Access IV DIRECTED JACK Ibuprofen 600 mg 11/30/23 16:32 12/01/23 05:04 Ibuprofen 600 Mg Tab PO 600 mg Q8H PRN PRN Administration Levothyroxine Sodium 100 mcg/ 250 mcg 12/01/23 06:00 12/01/23 05:04 Levothyroxine Sodium 150 mcg PO 250 mcg DAILY@0600 JACK Administration Loratadine 10 mg 11/30/23 10:43 Loratidine 10 Mg Tab PO DAILY PRN PRN Lorazepam 0.5 mg 11/30/23 16:28 11/30/23 19:58 Lorazepam 0.5 Mg Tab PO 0.5 mg HS PRN PRN Administration Melatonin 3 mg 11/30/23 20:00 11/30/23 19:58 Melatonin 3 Mg Tab PO 3 mg HS JACK Administration Polyethylene Glycol 17 gm 11/30/23 10:43 Polyethylene Glycol 3350 17 Gm Packet PO DAILY PRN PRN Constipation Sodium Chloride 0 ml 11/30/23 10:43 Normal Saline Flush 10 Ml Syr IVP PRN PRN Sodium Chloride 0 ml 11/30/23 10:43 12/01/23 09:31 Normal Saline Flush 10 Ml Syr IVP 10 ml BID JACK Administration Sodium Chloride 0 ml 11/30/23 10:43 Normal Saline 10 Ml Vial IJ DIRECTED PRN PFSH Active Problems Active Problems: Problem Status Onset Code Discharge planning issues Acute Z75.8 Myositis Acute M60.9 Cellulitis Acute L03.90 Abscess of axilla, left Acute L02.412 Knee pain, left Acute M25.562 H/O surgical procedure Chronic Z98.89 Anxiety Chronic F41.9 Hypothyroidism Chronic E03.9 Hyperlipidemia Chronic E78.5 Word finding difficulty Acute 03/06/14 R47.89 Hand weakness Acute 03/06/14 M62.81 Medical History Medical History (Updated 12/01/23 @ 13:28 by Jennifer Alberto APRN) Dilated pore of Amor Graves disease Surgical History Surgical History History of knee surgery History of appendectomy History of hysterectomy Tobacco Smoking/Tobacco Use Status: Former Tobacco Use Alcohol Alcohol Intake: never Substance Use Substance use: Never Substance use type: does not use Vital Signs and Lab Results Vital Signs Most Recent Vital Signs in EMR: Most Recent Vital Signs Temp Pulse Resp BP Pulse Ox 36.2 C L 61 17 102/60 99 12/01/23 08:47 12/01/23 08:47 12/01/23 08:47 12/01/23 08:47 12/01/23 08:47 Lab Results 12/01/23 06:35 12/01/23 06:35 Blood Type / Crossmatch: 2 No Data to Display Complete Blood Count: 2 White Blood Count 11.17 10^3/uL (4.4-10.8) H 12/01/23 06:35 Red Blood Count 3.73 10^6/uL (3.93-5.22) L 12/01/23 06:35 Hemoglobin 11.6 g/dL (11.2-15.7) 12/01/23 06:35 Hematocrit 34.8 % (36.0-46.0) L 12/01/23 06:35 Platelet Count 267 10^3/uL (130-400) 12/01/23 06:35 Venous Blood Lactate 0.9 mmol/L (0.6-1.4) 11/30/23 04:15 Complete Metabolic Panel: 2 Sodium 137 mmol/L (136-145) 12/01/23 06:35 Potassium 3.5 mmol/L (3.5-5.1) 12/01/23 06:35 Chloride 101 mmol/L (98-107) 12/01/23 06:35 Carbon Dioxide 25.3 mmol/L (21.0-32.0) 12/01/23 06:35 BUN 16 mg/dL (7-18) 12/01/23 06:35 Creatinine 0.7 mg/dL (0.55-1.02) 12/01/23 06:35 Est GFR (CKD-EPI 2020) 97.72 (mL/min/1.73m2) 12/01/23 06:35 Magnesium 1.6 mg/dL (1.8-2.4) L 12/01/23 06:35 Calcium 8.7 mg/dL (8.5-10.1) 12/01/23 06:35 Albumin 3.8 g/dL (3.4-5.0) 11/30/23 04:15 Glucose 101 mg/dL (74-106) 12/01/23 06:35 Liver Function Panel: 2 Alanine Aminotransferase (ALT/SGPT) 21 U/L (14-59) 11/30/23 04: 15 Aspartate Amino Transf (AST/SGOT) 15 U/L (15-37) 11/30/23 04:15 Coagulation Panel: 2 No Data to Display Cardiac Panel: 2 Troponin I < 50 ng/L (< or =60) 11/30/23 Arterial Blood Gas: 2 No Data to Display Venous Blood Gas: 2 No Data to Display Pancreas Panel: 2 No Data to Display Thyroid Panel: 2 No Data to Display Infectious Disease: 2 No Data to Display Blood Cultures: 2 No Data to Display Toxicology Panel: 2 No Data to Display Imaging and Studies Imaging and Studies Study information below may be from another EMR and interpreted by another provider. Please see original notes in EMR for more complete details. EKG Summary: Conclusion Sinus rhythm...normal P axis, V-rate 60- 99 Left anterior fascicular block...axis(240,-40), init [facility] Anesthesia Assessment and Plan Anesthesia History Personal History: No History of Anesthesia Complications Family History: No Family History of Anesthesia Complications Exercise Tolerance Exercise Tolerance: Metabolic Equivalents>4 Pertinent Negatives Pertinent Negatives: No Symptoms of GERD, No Major Cardiovascular Symptoms or Complaints and No Major Pulmonary Symptoms or Complaints Cardiac & Pulmonary Exam Cardiac Exam: Normal S1/S2 Heart Sounds Pulmonary Exam: Clear Bilateral Breath Sounds Implantable Cardiac Device Does patient have a Pacemaker or an ICD?: No Airway Exam Known Difficult Airway: No Mallampati Class: 1 Mouth Opening: Normal (> 3cm) Thyromental Distance: Greater than 3 cm Neck Range of Motion: Full ROM Neck Circumference: Normal Teeth Condition: Normal Dentition ASA Classification ASA Score: ASA 2 Emergency Case?: No NPO Status NPO Status: NPO Clears >2 hours, Solids >8 hours Anesthesia Plan Resuscitation Status: Full Code Anesthesia Technique: General Anesthesia Airway Planned: Natural Airway Monitors Used: Standard Monitors
[2023-12-01 15:59] VITALS: BMI 31.3
[2023-12-01] MEDS: Lactated Ringers 1,000 ML 30 ML IV (16:12)
[2023-12-01] MEDS: Bupivacaine 0.25% Pres-Free W/EPI 30 ML VIAL (16:32)
[2023-12-01] MEDS: VANCOMYCIN/WATER (PEG) 750 MG/150 ML BAG 150 MG IV (16:37)
--- NOTE | 2023-12-01 16:53 | W.PM.OP ---
Date of service: 12/01/23 Time of Service: 16:53 Operative Note Operative Note DATE OF PROCEDURE: 12/01/23 PRE-OP DIAGNOSIS: Left axillary abscesses PROCEDURE: Incision and drainage of left axillary abscesses SURGEON: Marlyn Oviedo ANESTHESIA TYPE: Local By Surgeon and MAC Refer to Anesthesia Record ESTIMATED BLOOD LOSS: 10 PATHOLOGY: none sent COMPLICATIONS: None Patient was transported to: PACU Patient's condition: stable Indications: This patient is a 63-year-old female who has a history of hidradenitis of the left axilla. Recently she had developed abscesses of the left axilla. She underwent 2 unsuccessful incision and drained at the bedside emergency department. Today on physical exam it was noted that the wounds were draining heavy purulent material. The recommendation was made for a formal incision and drainage in the operating room under anesthesia. There is no evidence of procedure were explained to patient. Informed consent was obtained placed on the chart. Procedure Description: The patient was brought to the operating room where she was placed on the operating table in the supine position. After adequate sedation anesthesia was administered by the department of anesthesia the left axilla was prepped and draped in the standard sterile fashion. A timeout was performed to confirm the site of surgery. The skin and the subcutaneous tissue was anesthetized with local anesthetic. #15 blade scalpel was used to lengthen the previous stab incisions that the patient had in the left axilla. A copious amount of purulent material was drained. The wounds were manually digitalized. The wounds were then copiously irrigated with saline solution. Excess irrigation was suction. Hemostasis was achieved. The wounds were packed with 1 inch plain wound packing. The skin was then cleaned and dried. Sterile dressings were applied. The patient tolerated the procedure well. At the end of the procedure the sponge, and instrument counts were all correct. The patient was sent to PACU in good condition.
[2023-12-01 17:15] VITALS: BP 93/68; PULSE 57; RESP 18; TEMP 36.1; O2SAT 96
[2023-12-01 18:08] VITALS: BP 100/58; PULSE 66; RESP 18; TEMP 36; O2SAT 95
[2023-12-01 18:34] VITALS: BP 100/55; PULSE 70; RESP 18; TEMP 36.1; O2SAT 94
--- NOTE | 2023-12-01 18:39 | W.ANESPOSTOP ---
Postoperative Evaluation Date, Time and Location Date Performed: 12/01/23 Time Performed: 18:39 Patient Location: Med/Surg Vital Signs Most Recent Imported Vital Signs: Most Recent Vital Signs Temp Pulse Resp BP Pulse Ox 36.1 C L 70 18 100/55 L 94 12/01/23 18:34 12/01/23 18:34 12/01/23 18:34 12/01/23 18:34 12/01/23 18:34 Pain Score Most Recent Pain Score: Most Recent Pain Score Pain Level [Left Arm] 4 11/30/23 21:00 Pain Level 0 12/01/23 08:47 Assessment Mental Status: Awake (Alert & Oriented to Patient Baseline) Airway and Respiratory Function: Patent airway with normal (patient baseline) respiratory exam Cardiovascular Function: Hemodynamically Stable Hydration Status: Adequately Hydrated Nausea & Vomiting: No Nausea or Vomiting Pain: Pain is tolerable per patient Peripheral Nerve Block: Patient did not receive a nerve block
[2023-12-01 19:43] VITALS: BP 105/71; PULSE 54; RESP 16; TEMP 36.2; O2SAT 96
[2023-12-01] MEDS: MORPHine 2 MG/ML SYR IVP (21:05)
[2023-12-02] VITALS (7 sets, daily range): BP systolic 97–118; BP diastolic 50–76; PULSE 48–68; RESP 16–18; TEMP 36–36.8; O2SAT 95–99
[2023-12-02] MEDS: VANCOMYCIN/WATER (PEG) 750 MG/150 ML BAG 150 MG IV (01:15)
[2023-12-02 06:47] LABS: Abs Immature Grans 0.04 10^3/uL (0.0-0.06); Absolute Basophil Count 0.03 10^3/uL (0.0-0.2); Absolute Eosinophil Count 0.22 10^3/uL (0.0-0.7); Absolute Lymphocyte Count 2.28 10^3/uL (1.2-3.4); Absolute Monocyte Count 0.69 10^3/uL (0.1-0.8); Absolute Neutrophil Count 6.48 10^3/uL (1.2-6.7); Basophils % 0.3 %; Eosinophils % 2.3 %; HCT 37.2 % (36.0-46.0); HGB 12.2 g/dL (11.2-15.7); Immature Grans % 0.4 %; Lymphocytes % 23.4 %; MCH 30.8 pg (27.0-33.0); MCHC 32.8 % (32.0-36.0); MCV 94 fL (80-95); MPV 9.4 fL (8.0-11.0); Monocytes % 7.1 %; Neutrophils % 66.5 %; Platelet Count 301 10^3/uL (130-400); RBC 3.96 10^6/uL (3.93-5.22); RDW 13.7 % (11.7-14.6); RDW-SD 47.4 fL; WBC 9.74 10^3/uL (4.4-10.8)
[2023-12-02 06:58] LABS: Anion Gap 10.2 mmol/L (3-11); BUN 14 mg/dL (7-18); CO2 23.8 mmol/L (21.0-32.0); CREATININE 0.7 mg/dL (0.55-1.02); Calcium 9.2 mg/dL (8.5-10.1); Chloride 103 mmol/L (98-107); Estimated GFR 97.72 (mL/min/1.73m2); Glucose 98 mg/dL (74-106); Potassium 3.5 mmol/L (3.5-5.1); Sodium 137 mmol/L (136-145)
[2023-12-02] MEDS: Normal Saline Flush 10 ML SYR IVP ×2 (07:45→20:36)
--- NOTE | 2023-12-02 09:38 | W.PM.PROGNOT ---
Date of Service Date of service: 12/02/23 Time of Service: 09:38 Assessment and Plan Assessment and plan (1) Abscess of axilla, left: Status: Acute Assessment and plan: Excised in ED, washed out and packed Failed Doxycycline IV MRSA positive in wound blood cultures ordered and collected on 11/30 at 13:50-results still pending at 15:24 12/02/23- no growth as per lab - most likely will not grow MRSA Vancomycin IV transitioned to linezolid- IV recommended by Sx for now No leukocytosis, afebrile, normotensive, improved pain Surgery consult: Please read note -Failed treatment at bedside- abscess reforming at one of the excision sites -OR on 11/30 at 4 PM ; see details in surgical procedure records please -Upon discussion recommendation is to continue IV antibiotics today d/t purulence (2) Cellulitis: Status: Acute Assessment and plan: As above (3) Anxiety: Status: Chronic Assessment and plan: C/o of insomnia improving Continue melatonin HS scheduled, effective Continue PRN low dose lorazepam at HS Was on sertraline but stopped years ago; stated taking PRN lorazepam at home for anxiety (4) Hypothyroidism: Status: Chronic Assessment and plan: Continue home dose levothyroxine (5) Constipation: Status: Acute Assessment and plan: No BM, no flatus, bowel sounds positive Scheduled docusate and miralax as the patient takes PRN narcotics for pain (6) Pain management: Status: Acute Assessment and plan: Multimodal Scheduled ibuprofen PRN morphine IV (7) Discharge planning issues: Status: Acute Assessment and plan: Discharge when medically clear anticipate HH, oral Zyvox Patient would also want to be decolonized for MRSA most likely with Bactroban and chlorhexidine w f/u with PCP We discuss the origin of her frequent cysts/ abscess, aware that she has sebaceous cysts, but not familiar with hidradenitis or ( sweat gland cysts) despite having had frequent cyst in groins as a teenager d/t horse back riding.Treatment with oral doxy X3 months , and aldactone or metformin should be discussed with PCP. Patient should f/u with PCP upon discharge Later in PM patient requesting transfer to [facility] d/t headache( no sensitivity to light/ noise or GI symptoms, non-neuro- RN preparing to give NSAID), felt that she was getting worst and called family- making call to nursing station and for transfer. Patient reassured that no transfer criteria met, as she was afebrile w/o leukocytoisis, normotension, adequate pain control, improving wound) .Patient aware that transfer at this time as [facility] was unlikely to accept her would probably be with her own means of transportation and self-pay. Patient wanted to make sure that if she got worst she would be transferred and reassured. Discussed with Dr. Mercado Subjective Subjective Patient reports: no new complaints, feels better, tolerating liquids well, tolerating a regular diet, voiding w/o difficulty, no flatus, no bowel movement and afebrile; denies nausea, vomiting or shortness of breath Exam Narrative Exam Narrative: Constitutional The patient is ambulatory in room w/o acute distress HENMT: Facial structures with normal appearance Eyes: Well aligned, intact ROM Neck: Normal ROM, no meningeal signs Neuro:alert and oriented to self, person, place time and situation. No neurological focal deficit Chest:Left chest wall distally tender to palpation, dressing in place DCI, no surrounding erythema Resp:Clear lung bilaterally Cardio: regular rhythm, S1, S2, no murmur,positive pulses to all 4 ext. GI: Abdomen is not distended, soft and non tender, bowel sounds are present Extremities: strength 5/5 to bilateral lower and upper extremities Psych: RASS 0, congruent mood and normal affect. Objective Last Vital Signs Temp 36.0 C L 12/02/23 05:33 Pulse 68 12/02/23 05:33 Resp 16 12/02/23 05:33 BP 117/62 12/02/23 05:33 Pulse Ox 97 12/02/23 05:33 Laboratory Results - last 24 hr 12/02/23 06:15 WBC 9.74 RBC 3.96 Hgb 12.2 Hct 37.2 MCV 94 MCH 30.8 MCHC 32.8 RDW 13.7 Plt Count 301 MPV 9.4 Immature Gran % 0.4 Neutrophils % 66.5 Lymphocytes % 23.4 Monocytes % 7.1 Eosinophils % 2.3 Basophils % 0.3 Nucleated RBC % 0.0 Absolute Neutrophils 6.48 Absolute Lymphocytes 2.28 Absolute Monocytes 0.69 Absolute Eosinophils 0.22 Absolute Basophils 0.03 Sodium 137 Potassium 3.5 Chloride 103 Carbon Dioxide 23.8 Anion Gap 10.2 BUN 14 Creatinine 0.7 Est GFR (CKD-EPI 2020) 97.72 Glucose 98 Calcium 9.2 Time Spent with Patient Time Spent with Patient: >50 minutes Time was spent: preparing to see the patient(eg.review tests), obtaining and/or reviewing separately otained hiistory, ordering medications,tests, procedures, referring, communicating with other health healthcare management consultant, indepentently interpreting results, counseling the patient and care coordination
[2023-12-02] MEDS: Linezolid 600 MG TAB PO (10:14)
[2023-12-02 13:03] LABS: Magnesium 1.9 mg/dL (1.8-2.4)
[2023-12-02] MEDS: Polyethylene Glycol 3350 17 GM PACKET PO (14:48)
[2023-12-02] MEDS: Ibuprofen 600 MG TAB PO ×3 (14:48→21:52)
[2023-12-02] MEDS: Pantoprazole 40 MG TABCR PO (16:52)
[2023-12-02] MEDS: Melatonin 3 MG TAB PO (20:35)
[2023-12-02] MEDS: Docusate Sodium 100 MG CAP PO (20:35)
[2023-12-02] MEDS: LORazepam 0.5 MG TAB PO (21:02)
[2023-12-02] MEDS: LINEZOLID 600 MG/300 ML BAG 300 MG IVPB (21:51)
[2023-12-03 00:31] VITALS: PULSE 54; O2SAT 98
[2023-12-03 04:39] VITALS: BP 103/57; PULSE 50; RESP 15; TEMP 36.6; O2SAT 97
[2023-12-03] MEDS: Ibuprofen 600 MG TAB PO ×3 (06:24→13:48)
[2023-12-03 07:23] LABS: Abs Immature Grans 0.06 10^3/uL (0.0-0.06); Absolute Basophil Count 0.05 10^3/uL (0.0-0.2); Absolute Eosinophil Count 0.17 10^3/uL (0.0-0.7); Absolute Lymphocyte Count 2.55 10^3/uL (1.2-3.4); Absolute Neutrophil Count 4.28 10^3/uL (1.2-6.7); Basophils % 0.7 %; Eosinophils % 2.2 %; HCT 34.6 % (36.0-46.0); HGB 11.7 g/dL (11.2-15.7); Immature Grans % 0.8 %; Lymphocytes % 33.5 %; MCH 31.3 pg (27.0-33.0); MCHC 33.8 % (32.0-36.0); MCV 93 fL (80-95); MPV 9.6 fL (8.0-11.0); Monocytes % 6.6 %; Neutrophils % 56.2 %; Platelet Count 311 10^3/uL (130-400); RBC 3.74 10^6/uL (3.93-5.22); RDW 13.6 % (11.7-14.6); RDW-SD 46.5 fL; WBC 7.61 10^3/uL (4.4-10.8)
[2023-12-03 07:42] LABS: Anion Gap 12.7 mmol/L (3-11); BUN 17 mg/dL (7-18); CO2 22.3 mmol/L (21.0-32.0); CREATININE 0.8 mg/dL (0.55-1.02); Calcium 8.9 mg/dL (8.5-10.1); Chloride 102 mmol/L (98-107); Estimated GFR 83.26 (mL/min/1.73m2); Glucose 93 mg/dL (74-106); Potassium 3.7 mmol/L (3.5-5.1); Sodium 137 mmol/L (136-145)
[2023-12-03] MEDS: Pantoprazole 40 MG TABCR PO (07:49)
[2023-12-03] MEDS: Polyethylene Glycol 3350 17 GM PACKET PO (07:49)
[2023-12-03] MEDS: Docusate Sodium 100 MG CAP PO (07:50)
[2023-12-03 08:08] VITALS: BP 114/65; PULSE 56; RESP 18; TEMP 36.8; O2SAT 98
--- NOTE | 2023-12-03 09:40 | PDOC.CMPRO ---
Date of service: 12/03/23 Time of Service: 09:40 Care Management Progress Note Discharge Potential Discharge Needs: PCP F/U Appt Anticipated Barriers to Discharge: None Identified Patient/Family Education Needs: Review discharge instructions, discuss Ask Me Three Transportation: Private vehicle Plan: Anticipate Linda will be discharged home with no new services. She will follow up with her PCP and plan of care and transport with family. CM will follow and continue to assess for discharge needs. SDOH(Care Management) Screening Will the Patient Participate in the Screening?: Declined to provide Do you worry about having a steady place to live?: no In the past 12 months, have you had to go without electric, gas, oil or water in your home?: no Have you or anyone in your house had to go without enough food to eat?: no Has lack of transportation kept you from medical appointments or from doing things needed for daily living?: no Has anyone in your support network made you feel unsafe for any reason?: no
[2023-12-03] MEDS: LINEZOLID 600 MG/300 ML BAG 300 MG IVPB (09:41)
[2023-12-03] MEDS: Normal Saline Flush 10 ML SYR IVP ×2 (09:43)
[2023-12-03 13:06] VITALS: BP 111/70; PULSE 56; RESP 18; TEMP 37.1; O2SAT 97
--- NOTE | 2023-12-03 15:18 | PDOC.CMDIS ---
Date of service: 12/03/23 Time of Service: 15:18 Care Management Discharge Plan Reason for Hospitalization: axillary abscess Discharge Plan: Linda decided to leave against medical advice. She cited several concerns with her care as the reason. Dr. Mercado met with Linda for an extended period however he was unable to convince her to stay. She will transport home with a friend via private vehicle and follow up with her community providers. Linda will have orders for new home health nursing for wound care.. Patient/Family Education Needs: Review of discharge instructions, follow up plan, discuss Ask Me Three Services Needed at Discharge: Home Health Care Services (New home health nursing for dressing changes) SDOH Health Related Social Needs: No Data to Display
--- NOTE | 2023-12-03 15:33 | W.PM.DS.N ---
Date of service: 12/03/23 Time of Service: 15:33 DS: Diagnosis Discharge Diagnosis (1) Abscess of axilla, left: Status: Acute (2) Cellulitis: Status: Acute (3) Anxiety: Status: Chronic (4) Hypothyroidism: Status: Chronic (5) Constipation: Status: Acute Discharge Plan Disposition Patient Disposition: Home W/Home Health Services Condition: Good Discharge Details Reason For Visit: Left arm cellulitis Admit Date/Time: 11/30/23 07:53 Admit Provider: Alexis Ellis Attending Provider: Alexis Ellis Primary Care Provider: Sidney Montes Hospital Course Hospital Course: 63 yo F with history of hypothyroidism and axillary/pilonidal cysts who was admitted with an abscess and cellulitis in her left axilla. She was initially evaluated 11/26 in the ED. At that point she was diagnosed with a simple abscess, which was I&D'd and she was discharged home without antibiotics. She returned 11/29 with worse left axillary pain and swelling along with chills and pain radiating to her chest. WBC was elevated at 14. I&D repeated in the emergency room. CT was done which showed deep soft tissue inflammation but no evidence of necrotizing fasciitis. She was started on doxycycline IV (due to her allergy history) but the pain and swelling did not improve. Antibiotics were changed to vancomycin and she was seen by surgeon Dr. Oviedo 11/30 who took her to the OR for a more extensive incision and drainage. MRSA grew from the abscess culture. She improved after that point and was transitioned to linazolid 12/01 to make sure she tolerated this antibiotic that she could continue as an outpatient. Her WBC had normalized and the pain and swelling were much better. Packing replaced 12/02 before discharge. She was given one week of additional oral linazolid given the complicated infection as well as instruction for MRSA decolonization. Consideration was given to diagnosis of hidradenitis suppurativa and hormonal treatment, but her history of abscesses/cysts is over many decades without recent recurrent cyst formation. She will call her PCP at [facility] for follow up in the next week. Home Health was ordered for wound care to change the packing every 2-3 days until the abscess has healed. Follow up with surgery clinic at the discretion of the PCP. Home Meds and New Rx's Prescriptions: New linezolid 600 mg tablet 600 mg PO BID Qty: 14 0RF mupirocin 2 % ointment 1 applic topical TID Qty: 22 0RF Rx Instructions: per decolonization protocol Continued loratadine [Claritin] 10 MG tablet 10 mg PO DAILY PRN levothyroxine 300 MCG tablet 250 mcg PO DAILY ferrous gluconate 324 mg (38 mg iron) tablet Patient Comments: TAKE ONE TABLET BY MOUTH EVERY DAY Discharge Instructions Instructions: Methicillin-resistant Staphylococcus aureus (MRSA) Additional Instructions: Follow the MRSA decolonization protocol with mupirocin ointment and chlorhexidine wash. Do it this week while you are taking the oral antibiotic. You need the packing removed and replaced in 2-3 days. The plan is to have home health come do this. Stand Alone Forms: Nursing Discharge Form Referrals: Sidney Montes [Primary Care Provider] - 12/06/23 10:00 am Activity:: Activity as Tolerated Equipment/Supplies:: No Equipment Needed Diet:: As Tolerated Discharge Orders Discharge Orders: Discharge Order (Routine); Ordered 12/03/23 Ordered By: Vaughn Mercado DS: Summary Time Spent with Patient providing and/or coordinating discharge services: Greater than 30 minutes Status at Discharge Functional status at discharge: independent ambulation Overall status at discharge: patient is progressing back to baseline Mental Status: mental status grossly normal Speech and Movement: speech and movement normal Mood: congruent mood Affect: normal affect Quality:SDOH Health Related Social Needs: No Data to Display Exam Narrative Exam Narrative: Constitutional: The patient is ambulatory in room w/o acute distress Neck: Normal ROM Neuro:alert and oriented to self, person, place time and situation. No neurological focal deficit Chest:Left axilla with packed abscess, mimimal surrounding tenderness, not red. No swelling into chest Resp:Clear lung bilaterally Cardio: regular rhythm, S1, S2, no murmur. Extremities: nl movement of bilateral lower and upper extremities Psych Mental Status: mental status grossly normal Speech and Movement: speech and movement normal Mood: congruent mood Affect: normal affect DS: Data Vitals/I&O Vitals and I&O: Vital Signs Temperature 37.1 C 12/03/23 13:06 Temperature Source Tympanic 12/03/23 13:06 Pulse 56 L 12/03/23 13:06 Pulse Rhythm Irregular 12/03/23 12:00 Pulse 64 11/30/23 08:40 Respiratory Rate 18 12/03/23 13:06 Respiratory Effort Normal 12/03/23 12:00 Respiratory Depth Normal 12/03/23 12:00 Respiratory Pattern Normal 12/03/23 12:00 Blood Pressure 111/70 12/03/23 13:06 Blood Pressure Mean 59 11/30/23 06:15 Blood Pressure Position Supine 11/30/23 04:04 Pulse Oximetry 97 12/03/23 13:06 Oxygen Delivery Method Room Air 12/03/23 13:06 Oxygen Flow Rate 0 12/03/23 13:06 Pain Level 0 12/03/23 13:06 Comment per RN request, let pt sleep 12/01/23 23:00 Intake & Output 12/02/23 12/03/23 12/03/23 23:59 11:59 23:59 Intake Total 320 / 330 Balance 320 / 330 Intake: IV 320 / 330 Other: Urine Appearance Clear Clear Voiding Methods Toilet Data Completed and Pending Labs on day of discharge: Labs from last 24 hours 12/03/23 06:50 WBC 7.61 RBC 3.74 L Hgb 11.7 Hct 34.6 L MCV 93 MCH 31.3 MCHC 33.8 RDW 13.6 Plt Count 311 MPV 9.6 Immature Gran % 0.8 Neutrophils % 56.2 Lymphocytes % 33.5 Monocytes % 6.6 Eosinophils % 2.2 Basophils % 0.7 Nucleated RBC % 0.0 Absolute Neutrophils 4.28 Absolute Lymphocytes 2.55 Absolute Monocytes 0.50 Absolute Eosinophils 0.17 Absolute Basophils 0.05 Sodium 137 Potassium 3.7 Chloride 102 Carbon Dioxide 22.3 Anion Gap 12.7 H BUN 17 Creatinine 0.8 Est GFR (CKD-EPI 2020) 83.26 Glucose 93 Calcium 8.9 Preliminary micro results at discharge 12/01/23 13:45 Blood Culture - Preliminary Blood NO GROWTH 24 HOURS 12/01/23 13:50 Blood Culture - Preliminary Blood NO GROWTH 24 HOURS PFSH All Active Problems (Updated 12/03/23 @ 15:17 by Vaughn Mercado) Pain management (Acute) Constipation (Acute) Discharge planning issues (Acute) Myositis (Acute) Cellulitis (Acute) Abscess of axilla, left (Acute) Knee pain, left (Acute) H/O surgical procedure (Chronic) a. s/p appendectomy b. s/p hysterectomy Anxiety (Chronic) Hypothyroidism (Chronic) Hyperlipidemia (Chronic) Word finding difficulty (Acute 03/06/14) Hand weakness (Acute 03/06/14) Medical History (Updated 12/03/23 @ 15:17 by Vaughn Mercado) Dilated pore of Amor Graves disease Surgical History History of knee surgery History of appendectomy History of hysterectomy Family History (Updated 11/30/23 @ 16:45 by Jennifer Alberto APRN) Mother Diabetes Heart disease Renal disease Father Progressive aphasia Social History Smoking/Tobacco Use Status: Former Tobacco Use Smoking risk assessment performed?: Yes Alcohol Intake: never Drug use: Never Substance use type: does not use Housing: house Do you feel safe at home: Yes Do you feel safe in your relationship?: Yes Time Spent with Patient Time Spent with Patient: 45-69 minutes Time was spent: preparing to see the patient(eg.review tests), obtaining and/or reviewing separately otained hiistory, ordering medications,tests, procedures, referring, communicating with other health career technical education teacher, indepentently interpreting results, counseling the patient and care coordination
--- NOTE | 2023-12-03 15:40 | PDOC.HHF2F_ITS ---
Home Health Referral Home Health Orders Clinical synopsis of why skilled professionals are needed: wound care, replace packing every 2-3 days of deep incision and drainage Medical diagnosis necessitation home health referral: left axillary abscess with cellulitis, s/p complex incision and drainage Registered Nurse: Check all that apply Assess wound for signs and symptoms of infection, instruct on wound care and/or provide skilled wound care consisting of: left axillary abscess, wound packing change, dressing Home Bound Status Assistance of another person (Describe assistance and medical necessity): fatigue and malaise associated with acute infection, not able to drive Describe why leaving home would require a considerable and taxing effort: Side effects from pain medication (sedation/drowsiness) and Requires frequent rest periods Encounter Date and Reason: I certify that a FTF encounter for this patient was performed on December 03, 2023 and that such encounter was related to the primary reason the patient requires home health services. The encounter was conducted in the following manner: * By me as the certifying physician, COMPUTER SUPPORT ANALYST, PA or * By an inpatient physician, COMPUTER SUPPORT ANALYST or PA during an inpatient stay who communicated findings to me, Certification And Authentication I certify that I composed the above information based on my clinical judgment relating to this patient's medical condition and, if applicable, clinical findings communicated to me by the NPP or inpatient physician who performed the FTF encounter. Name of Provider that will be monitoring home health services: Sidney Montes
== END 2023-12-03 15:45 | disposition home health service (06) | DRG 603 ==
LOC: ER 08:03 → MS 10:12
PROVIDERS: Nurse Practitioner Acute Care; Surgery; Admitting Provider Family Medicine; Emergency Provider Student in an Organized Health Care Education/Training Program; PCP Internal Medicine; Visit Provider Family Medicine
PROC: 0X950ZZ Drainage of Left Axilla, Open Approach (ICD-10-PCS; CPT 10060; principal; 2023-12-01 15:15)
DX: L02.412 Cutaneous abscess of left axilla (principal); M60.08 Infective myositis, other site; E03.9 Hypothyroidism, unspecified; F41.9 Anxiety disorder, unspecified; K59.00 Constipation, unspecified; L73.2 Hidradenitis suppurativa; L03.112 Cellulitis of left axilla; E78.5 Hyperlipidemia, unspecified; I44.4 Left anterior fascicular block; B95.62 Methicillin resistant Staphylococcus aureus infection as the cause of diseases classified elsewhere
CPT/HCPCS: 10060; 00123; 10061; 36410; 36415; 71250; 80048; 80053; 84145; 85027; 87040; 87077; 93005; 96365; 96366; 96375; 96376; 99285; 83605; 83735; 84484; 85025; 87070; 87186; 87205; 93010; 99223; 99233; 99239; J1885; J2001; J2020; J2250; J2270; J2405; J2704; J3372

== ENCOUNTER 2024-01-03 12:43 | Outpatient (CLI) | payer MEDICAID, SELFPAY ==
[2024-01-03 12:29] LABS: Abs Immature Grans 0.02 10^3/uL (0.0-0.06); Absolute Basophil Count 0.05 10^3/uL (0.0-0.2); Absolute Eosinophil Count 0.19 10^3/uL (0.0-0.7); Absolute Lymphocyte Count 2.82 10^3/uL (1.2-3.4); Absolute Neutrophil Count 4.68 10^3/uL (1.2-6.7); Basophils % 0.6 %; Eosinophils % 2.3 %; HCT 40.7 % (36.0-46.0); HGB 13.4 g/dL (11.2-15.7); Immature Grans % 0.2 %; Lymphocytes % 34.1 %; MCH 31.5 pg (27.0-33.0); MCHC 32.9 % (32.0-36.0); MCV 96 fL (80-95); Monocytes % 6.1 %; Neutrophils % 56.7 %; Platelet Count 260 10^3/uL (130-400); RBC 4.26 10^6/uL (3.93-5.22); RDW 15.7 % (11.7-14.6); RDW-SD 55.4 fL; Reticulocyte 1.6 % (0.5-2.4); WBC 8.26 10^3/uL (4.4-10.8)
[2024-01-03 13:18] LABS: Iron 98 ug/dL (50-170); Total Iron Binding Capacity 329 ug/dL (250-450); Transferrin Sat 30 % (15-50)
[2024-01-03 13:32] LABS: Ferritin 83 ng/mL (8-252); Vitamin B12 203 pg/mL (193-986)
== END 2024-01-03 12:44 | disposition home or self-care (01) ==
LOC: LBO 12:44
PROVIDERS: PCP Internal Medicine; Visit Provider Nurse Practitioner Family
DX: E53.8 Deficiency of other specified B group vitamins (principal); R79.0 Abnormal level of blood mineral
CPT/HCPCS: 36415; 82607; 82728; 83540; 83550; 85025; 85045

== ENCOUNTER 2024-05-27 13:52 | Outpatient (CLI) | payer MEDICAID, SELFPAY ==
[2024-05-27 13:49] LABS: Abs Immature Grans 0.03 10^3/uL (0.0-0.06); Absolute Basophil Count 0.05 10^3/uL (0.0-0.2); Absolute Eosinophil Count 0.26 10^3/uL (0.0-0.7); Absolute Lymphocyte Count 3.58 10^3/uL (1.2-3.4); Absolute Monocyte Count 0.44 10^3/uL (0.1-0.8); Absolute Neutrophil Count 4.91 10^3/uL (1.2-6.7); Basophils % 0.5 %; Eosinophils % 2.8 %; HCT 42.9 % (36.0-46.0); Immature Grans % 0.3 %; Lymphocytes % 38.6 %; MCH 30.5 pg (27.0-33.0); MCHC 32.6 % (32.0-36.0); MCV 94 fL (80-95); MPV 9.2 fL (8.0-11.0); Monocytes % 4.7 %; Neutrophils % 53.1 %; Platelet Count 300 10^3/uL (130-400); RBC 4.59 10^6/uL (3.93-5.22); RDW 13.8 % (11.7-14.6); RDW-SD 47.3 fL; WBC 9.27 10^3/uL (4.4-10.8)
[2024-05-27 15:18] LABS: Ferritin 48 ng/mL (8-252); Vitamin B12 344 pg/mL (193-986)
== END 2024-05-27 13:53 | disposition home or self-care (01) ==
LOC: LBO 13:53
PROVIDERS: PCP Internal Medicine; Visit Provider Nurse Practitioner Family
DX: E53.8 Deficiency of other specified B group vitamins (principal); R79.0 Abnormal level of blood mineral
CPT/HCPCS: 36415; 82607; 82728; 85025